=== PATIENT | male | born 1945 | race Caucasian/White ===

== ENCOUNTER 2017-07-31 17:26 | Inpatient (IN) ==
--- NOTE | 2017-07-31 19:04 | Emergency Department Note ---
Arrival - Arrival Chief Complaint: Weakness Stated Complaint: sugar high ED Nursing Triage Note: Pt c/o high sugar over 700, right arm "jerking", and weakness. Pt was seen at Dr Woods's office today. ; Mode of Arrival: Ambulatory Time Seen by Provider: 07/31/17 18:27 - History of Present Illness HPI Narrative: This is a 71-year-old white male with history of ischemic cardiomyopathy with an AICD and systolic and diastolic congestive heart failure with a left ventricular ejection fraction of 30%, coronary artery disease with previous myocardial infarction and coronary artery bypass graft surgery, type 2 diabetes , long-standing and persistent atrial fibrillation on Eliquis, hypertension, prior acute renal failure which is improved who is in his doctor's office today where laboratory tests were done and where he complained of symptoms compatible of a focal seizure involving his left arm with the family noticed on 3 separate occasions today. The most severe of which was after they left the doctor's office and after he had a CT scan of his brain was on the way home. The family describes the seizure as involving the left arm with altered mental status but not complete loss of consciousness. Dr. Sarah Woods noted that his blood sugar was over 500 and advised him to come back to the emergency department for further evaluation. The CT scan of the brain which was done today showed bilateral parietal cortical infarctions and multiple cerebellar infarctions with an abnormality in the third ventricle which may be consistent with a cyst or an aneurysm. The family has noticed that the patient has had ataxia for the past 24 hours. His says that for the past 3 months he has been having increasing signs of what she thought was Alzheimer's disease. In the emergency department since the patient was given Ativan his confusion seems to be exacerbated. He is oriented to time and place but could not name the president. Allergies/Adverse Reactions: Allergies Allergy/AdvReac Type Severity Reaction Status Date / Time Sulfa (Sulfonamide Allergy RASH Verified 07/31/17 17:34 Antibiotics) Home Medications: Home Medications Medication Instructions Recorded Confirmed Type Aspirin [Ecotrin] 81 mg PO QAM 07/03/16 07/31/17 History Gabapentin Cap/Tab [Neurontin 300 mg PO BEDTIME 07/03/16 07/31/17 History Cap/Tab] Insulin Detemir [Levemir FlexPen] 15 unit SUBCUT BID 07/03/16 07/31/17 History Glimepiride [Amaryl] 4 mg PO DAILY W/BREAKFAST tablet 07/09/16 07/31/17 Rx Lovastatin [Mevacor] 40 mg PO DAILY W/SUPPER tablet 07/09/16 07/31/17 Rx Furosemide Tab [Lasix Tab] 20 mg PO QAM 12/24/16 07/31/17 History Sertraline [Zoloft] 25 mg PO BEDTIME 12/24/16 07/31/17 History Metoprolol Tartrate Tab [Lopressor 50 mg PO BID #60 tablet 12/25/16 07/31/17 Rx Tab] Apixaban [Eliquis] 2.5 mg PO BID 07/31/17 07/31/17 History Ferrous Gluconate 240 mg PO QAM 07/31/17 07/31/17 History Isosorbide Mononitrate [Imdur] 60 mg PO QAM 07/31/17 07/31/17 History Potassium Chloride 10 meq PO QAM 07/31/17 07/31/17 History cloNIDine TAB [Catapres Tab] 0.2 mg PO BEDTIME 07/31/17 07/31/17 History Review of System - Review of System Constitutional: Absent: fever, night sweats Eyes: Absent: redness, vision change Head/Ears/Nose/Throat: Absent: epistaxis, nasal drainage Respiratory: Absent: respiratory distress Cardiovascular: Absent: orthopnea Gastrointestinal: Absent: nausea, vomiting, diarrhea Genitourinary male: Absent: dysuria, hematuria Musculoskeletal: Absent: joint swelling, lower back pain, leg pain Skin: Absent: change in color, change in hair/nails, pruritus Neurological: Present: abnormal gait. Absent: confusion Psychiatric: Absent: anxiety, depression Endocrine: Present: polydipsia, polyuria. Absent: heat intolerance Hematological/Lymphatic: Absent: easy bruising, lymphadenopathy Allergic/Immunologic: Absent: urticaria, itchy eyes Medical,Surgical,& Family Hx - Medical History Cardio: History of: Hypertension, [place] Neurology: No history of: Seizures Endocrine: History of: Diabetes Mellitus (IDDM), Diabetes Mellitus (NIDDM), Dyslipidemia - Surgical History Cardiac Surgeries: Sugical HX of: Cardiac Catheterization, Cardiac Surgery (CABG ) Abdominal Surgeries: Patient denies: Abdominal Surgery - Family History Family History: Reports;: Family Diabetes (mother), Family Heart Disease (father ), Family Hypertension (mother) - Social History Smoking Status: Never smoker Exam Vital Signs: Vital Signs Temperature 97.1 F L 07/31/17 18:19 Pulse Rate 112 H 07/31/17 18:19 Respiratory Rate 22 07/31/17 18:19 Blood Pressure 198/140 07/31/17 18:19 O2 Sat by Pulse Oximetry 97 07/31/17 17:31 - General Exam limited due to: ALOC General appearance: alert, in no apparent distress - Eye Eye exam: Present: normal appearance, PERRL, EOMI - ENT ENT exam: Present: normal exam - Neck Neck exam: Present: normal inspection - Chest Chest inspection: Present: normal inspection - Respiratory Respiratory exam: Present: normal lung sounds bilaterally - Cardiovascular Cardiovascular exam: Present: irregular rhythm - Abdominal Exam Abdominal exam: Present: soft, normal bowel sounds - Extremities Exam Extremities exam: Present: normal inspection, full ROM - Back Exam Back exam: Present: normal inspection, full ROM - Neurological Exam Neurological exam: Present: alert, oriented X3, CN II-XII intact, reflexes normal. Absent: motor sensory deficit - Psychiatric Psychiatric exam: Present: normal affect, normal mood - Skin Skin exam: Present: warm, dry Course Course Narrative: The case was discussed with Dr. Campbell who agreed the patient should be admitted to the hospital for what appears to be a focal seizure disorder which is new in onset and possibly related to previous cerebral cortical strokes and cerebellar strokes with a possible aneurysm in the ak chin of Pat. Dr. Campbell recommended neurology consultation sliding scale for the hyperglycemia and admission to telemetry. Results - Labs CBC & BMP: 07/31/17 17:49 07/31/17 17:49 Disposition Clinical Impression: Focal motor seizure disorder, Hyperglycemia Disposition: Still a Patient Additional Instructions: The case was discussed with Dr. Campbell who agreed to admit the patient to the hospital for neurology consultation and sliding scale for the elevated blood sugar.
[2017-07-31] MEDS ORDERED: levETIRAcetam 500 MG TABLET PO STA (19:18)
[2017-07-31] MEDS ORDERED: LORazepam 2 MG/1 ML VIAL IV STA (19:19)
[2017-07-31] MEDS ORDERED: hydrALAZINE 20 MG/1 ML VIAL IV STA (19:19)
[2017-07-31] MEDS ORDERED: SODIUM CHLORIDE 0.9% 1,000 ML IV STA (19:21)
[2017-07-31] MEDS ORDERED: INSULIN REGULAR 100 UNIT/ML IV STA ×2 (19:21→21:46)
--- NOTE | 2017-07-31 19:40 | XRay Report ---
Portable chest. Indication: Seizure. History of lung cancer. Comparison: December 25, 2016. The cardiac silhouette is enlarged. Post median sternotomy. Cardiac hardware is in satisfactory position. The lung huitron are hyperexpanded. Calcified granulomas are present. Interstitial markings are prominent but stable. No consolidation, pneumothorax, or pleural effusion. Degenerative changes of the shoulders and spinal column. Impression: Cardiomegaly and chronic lung changes. No acute abnormality. PROCEDURE INTERPRETED AT [facility] DEPARTMENT OF RADIOLOGY Final Report Signed by: Dr. Lay Mathias
[2017-07-31] MEDS ORDERED: hydrALAZINE 20 MG/1 ML VIAL ONE (19:55)
[2017-07-31] MEDS ORDERED: levETIRAcetam 500 MG TABLET ONE (19:55)
[2017-07-31] MEDS ORDERED: LORazepam 2 MG/1 ML VIAL ONE (19:56)
[2017-07-31] MEDS ORDERED: INSULIN REGULAR 100 UNIT/ML ONE (19:57)
[2017-07-31 20:03] LABS: Basophils % 0.6 % (0.0-0.8); Eosinophils # 0.2 10*3/uL (0.0-0.87); Eosinophils % 3.2 % (0.00-10.9); Hematocrit 37.3 VOL% (42.0-52.0); Immature Granulocytes % 0.3 %; Immature Granulocytes Absolute 0.02 #; Lymphocytes # 1.3 10*3/uL (1.4-4.0); Lymphocytes % 18.2 % (21.2-54.2); Mean Corpuscular HGB Conc 34.9 GM/DL (32-36); Mean Corpuscular Hemoglobin 31 PG (27-34); Mean Corpuscular Volume 87.6 FL (87-102); Mean Platelet Volume 11.9 FL (9.6-12.0); Monocytes # 0.5 10*3/uL (0.11-0.8); Monocytes % 7.5 % (1.7-12.7); Neutrophils % 70.2 % (38.7-73.9); Platelet Count 140 T/CUMM (130-400); Red Blood Count 4.26 MC/CUMM (3.8-5.5); Red Cell Distribution Width 13.3 % (9.3-17.3); White Blood Count 7.2 T/CUMM (4-12)
[2017-07-31 20:18] LABS: VBG Base Excess 0.4 MEQ/L (0-4); VBG HCO3 24.8 MEQ/L (24-28); VBG Oxygen Saturation 98.2 %; VBG PCO2 38.2 MMHG (41-51); VBG PH 7.418; VBG PO2 95.8 MMHG (17-40)
--- NOTE | 2017-07-31 20:33 | Order Completion Report ---
See report scanned to EMR
[2017-07-31 20:47] LABS: Albumin 3.6 G/DL (3.4-5.0); Bilirubin,Total 0.5 MG/DL (0.2-1.0); Calcium 8.9 MG/DL (8.5-10.1); Osmolality,Calculated 301.5 MOS/KG (273-304); Potassium 3.9 MMOL/L (3.5-5.1); Total Protein 7.9 G/DL (6.4-8.3)
[2017-07-31] MEDS ORDERED: ONDANSETRON 4 MG/2 ML VIAL IV PRN (21:34)
[2017-07-31] MEDS ORDERED: DEXTROSE 50% 25 GM/50 ML VIAL IV PRN (21:34)
[2017-07-31] MEDS ORDERED: ACETAMINOPHEN 325 MG TABLET PO PRN (21:34)
[2017-07-31] MEDS ORDERED: GLUCAGON 1 MG VIAL IM PRN (21:34)
[2017-08-01 00:01] LABS: Troponin I Only 0.063 NG/ML (0.00-0.045)
[2017-08-01] MEDS ORDERED: cloNIDine 0.1 MG TABLET PO PRN (00:30)
[2017-08-01] MEDS: INSULIN REGULAR 100 UNIT/ML SUBCUT SCH ×4 (00:41→18:15)
[2017-08-01] MEDS: GABAPENTIN 300 MG CAPSULE PO SCH ×2 (00:45→20:57)
[2017-08-01] MEDS: METOPROLOL TARTRATE 100 MG TABLET PO SCH ×3 (00:46→20:57)
[2017-08-01 01:24] LABS: Troponin I Only 0.064 NG/ML (0.00-0.045)
--- NOTE | 2017-08-01 03:43 | Order Completion Report ---
See report scanned to EMR
--- NOTE | 2017-08-01 07:19 | Order Completion Report ---
See report scanned to EMR
[2017-08-01] MEDS: DOCUSATE SODIUM 100 MG CAPSULE PO SCH ×2 (12:10→20:57)
[2017-08-01] MEDS: PANTOPRAZOLE 40 MG TABLET PO SCH (12:10)
--- NOTE | 2017-08-01 13:01 | Order Completion Report ---
See report scanned to EMR
--- NOTE | 2017-08-01 15:16 | Neurology Consult Note ---
History of Present Illness History of present illness: 70 years old right-handed white gentleman with past medical history significant for ischemic cardiomyopathy with an AICD, congestive heart failure with LV ejection fraction of 30%, CAD, previous AR and CABG, type 2 diabetes, long- standing history of atrial fibrillation on chronic anticoagulation with Eliquis , hypertension, history of renal failure admitted to the hospital with some shaking and jerking of the arms and legs. Patient was at Dr. Woods's office where he developed some nervousness and anxiety and was just having some shaking of the arms. He also developed some difficulty in walking. tried to take him back home but he somewhat passed out inside the car. He seems to be doing fine today. He had a CAT scan done on 07/31/2017 which revealed bilateral parietal watershed type chronic infarcts, bilateral old cerebellar infarcts and a small lacunar infarct of the left thalamus. At Dr. Woods's office lab works revealed blood sugar of over 500 and he was advised to go to the emergency room. No tongue biting or urinary incontinence reported. Never had similar episodes before. No family history of seizures either. Home Medications Medication Instructions Recorded Confirmed Type Aspirin [Ecotrin] 81 mg PO DAILY 07/03/16 07/31/17 History Gabapentin Cap/Tab [Neurontin 300 mg PO AC SUPPER 07/03/16 07/31/17 History Cap/Tab] Insulin Detemir [Levemir FlexPen] 15 unit SUBCUT AC BREAKFAST 07/03/16 07/31/17 History Glimepiride [Amaryl] 4 mg PO DAILY W/BREAKFAST tablet 07/09/16 07/31/17 Rx Lovastatin [Mevacor] 40 mg PO DAILY W/SUPPER tablet 07/09/16 07/31/17 Rx Furosemide Tab [Lasix Tab] 20 mg PO DAILY 12/24/16 07/31/17 History Sertraline [Zoloft] 25 mg PO DAILY 12/24/16 07/31/17 History Apixaban [Eliquis] 2.5 mg PO BID 07/31/17 07/31/17 History Ferrous Gluconate 240 mg PO DAILY 07/31/17 07/31/17 History Isosorbide Mononitrate [Imdur] 60 mg PO DAILY 07/31/17 07/31/17 History Metoprolol Tartrate Tab [Lopressor 100 mg PO BID W/MEALS 07/31/17 07/31/17 History Tab] Potassium Chloride 10 meq PO DAILY 07/31/17 07/31/17 History cloNIDine TAB [Catapres Tab] 0.2 mg PO BEDTIME 07/31/17 07/31/17 History Allergies Allergy/AdvReac Type Severity Reaction Status Date / Time Sulfa (Sulfonamide Allergy RASH Verified 07/31/17 17:34 Antibiotics) 12 point system: reviewed and no additional remarkable complaints except as stated Medical,Surgical,& Family Hx - Medical History Cardio: History of: Cardiac Dysrhythmia (HX AFIB), CHF, CAD, Hypertension, [place], Pacemaker Neurology: No history of: Seizures Endocrine: History of: Diabetes Mellitus (IDDM), Diabetes Mellitus (NIDDM), Dyslipidemia - Surgical History Cardiac Surgeries: Sugical HX of: Cardiac Catheterization (WITH STENTS), Cardiac Surgery (CABG) Abdominal Surgeries: Patient denies: Abdominal Surgery - Family History Family History: Reports;: Family Diabetes (mother), Family Heart Disease (father ), Family Hypertension (mother) - Social History Smoking Status: Never smoker Frequency of Alcohol Use: None Type of Drug Use: None Exam - Constitutional Vitals: Period Temp Pulse Resp BP Sys/Fernando Pulse Ox Last 24 Hr 95.6 F-98.1 F 60-112 16-22 136-198/70-140 92-100 Exam: GENERAL: Patient is in no acute distress. NECK: Neck is supple. There is no JVD. No carotid bruits present. No thyroid masses. CVS: First and second heart sounds are normal. There is no S3 present. Regular rate and rhythm. RESPIRATORY: Lungs are clear to auscultation without any rales or rhonchi. ABDOMEN: Soft and non-tender. Bowel sounds are present. There is no hepatosplenomegaly. EXT: There is no palpable edema. Peripheral pulses are present. Skin: No rashes Central Nervous system: General: Alert, awake and Oriented x 3 Speech: Fluent Comprehension: Intact and normal Facial expressions: Normal Cranial Nerves: CN1/Olfactory: Normal CN II/ Optic: Normal, Visual Clay unreliable CN III, and : JOSE & EOMI CN V: Normal & intact CN VII: face is symmetric CNVIII: Normal CN XI/X/XI/XII: Intact and Normal Motor: Bulk and Tone is normal. Strength in the right 5/5 Strength in the left 5/5 Sensory: Decreased for all the modalities of PP, LT and temp sense Reflexes: 1+ and symmetrical Cerebellar function: Normal finger to nose and heel to grigsby testing. Toes: Equivocal Gait: Able to get up and walk Results - Labs CBC & BMP: 07/31/17 17:49 07/31/17 17:49 Assessment and Plan (1) Syncope Status: Acute Assessment and plan: This does sound like metabolic in origin. Blood sugar was extremely high at 500. I do not see any clear evidence of TIA, seizure or epilepsy. However we will go ahead and do EEG for the sake of completeness. Thank you for the consult Okay to go home when okay with PCP after EEG Current Visit: Yes
[2017-08-01 16:38] LABS: Apearance,Urine Slightly Hazy (Clear); Bacteria,Urine Occasional /HPF (Few); Bilirubin,Urine Negative (Negative); Blood, Urine Large mg/dL (Negative); Glucose,Urine (UA) >=500 mg/dL (Negative); Granular Casts,Urine 14 /LPF (0-1); Hyaline Casts,Urine 7 /LPF (0-3); Ketones,Urine Negative (Negative); Mucus,Urine Occasional /LPF (Occasional); Nitrite,Urine Negative (Negative); Protein,Urine >=500 MG/DL; RBC,Urine 55 /HPF (0-4); Urine Color Amber (Yellow); Urine Specific Gravity 1.023 (1.001-1.035); WBC,Urine 4 /HPF (0-6)
--- NOTE | 2017-08-01 18:16 | Internal Med History&Physical ---
Assessment and Plan (1) Paroxysmal a-fib Status: Chronic Current Visit: Yes (2) Pacemaker Status: Chronic Current Visit: Yes (3) Focal motor seizure disorder Status: Acute Current Visit: Yes (4) Hyperglycemia Status: Acute Current Visit: Yes (5) Congestive heart failure Status: Chronic Current Visit: No Qualifiers: Congestive heart failure type: combined (6) Coronary artery disease Status: Chronic Current Visit: No Qualifiers: Coronary Disease-Associated Artery/Lesion type: [place] artery [place] vs. transplanted heart: [place] heart Associated angina: without angina Qualified Code(s): I25.10 - Atherosclerotic heart disease of [place] coronary artery without angina pectoris (7) Diabetes mellitus Status: Chronic Current Visit: Yes Qualifiers: Diabetes mellitus type: type 2 Diabetes mellitus complication status: with hyperglycemia Diabetes mellitus correction insulin use: with dedicated intermodal truck driver use Qualified Code(s): E11.65 - Type 2 diabetes mellitus with hyperglycemia; Z79.4 - jail (current) use of insulin; Z79.4 - jail (current) use of insulin ; Z79.4 - jail (current) use of insulin; Z79.4 - watermaster (current) use of insulin (8) Essential hypertension Status: Chronic Current Visit: Yes History of Present Illness Chief complaint: acute tremors History of present illness: Mr. Heller is a 71 year old male with history of DM, HTN, CAD with stents, CABG , CHF, cardiomyopathy with LVEF of 30%, dyslipidemia, chronic atrial fibrillation, pacemaker placement, old strokes, who presented to clinic yesterday with worsening tremors and confusion. He was found to have significantly elevated glucose of >[address] brain indicated multiple small strokes. MRI brain ordered for next week from clinic to further delineate area of abnormality on CT. Dr. Turpin consulted to further evaluate tremors and rule out seizure activity. He was alert when seen today. Home Medications Medication Instructions Recorded Confirmed Type Aspirin [Ecotrin] 81 mg PO DAILY 07/03/16 07/31/17 History Gabapentin Cap/Tab [Neurontin 300 mg PO AC SUPPER 07/03/16 07/31/17 History Cap/Tab] Insulin Detemir [Levemir FlexPen] 15 unit SUBCUT AC BREAKFAST 07/03/16 07/31/17 History Glimepiride [Amaryl] 4 mg PO DAILY W/BREAKFAST tablet 07/09/16 07/31/17 Rx Lovastatin [Mevacor] 40 mg PO DAILY W/SUPPER tablet 07/09/16 07/31/17 Rx Furosemide Tab [Lasix Tab] 20 mg PO DAILY 12/24/16 07/31/17 History Sertraline [Zoloft] 25 mg PO DAILY 12/24/16 07/31/17 History Apixaban [Eliquis] 2.5 mg PO BID 07/31/17 07/31/17 History Ferrous Gluconate 240 mg PO DAILY 07/31/17 07/31/17 History Isosorbide Mononitrate [Imdur] 60 mg PO DAILY 07/31/17 07/31/17 History Metoprolol Tartrate Tab [Lopressor 100 mg PO BID W/MEALS 07/31/17 07/31/17 History Tab] Potassium Chloride 10 meq PO DAILY 07/31/17 07/31/17 History cloNIDine TAB [Catapres Tab] 0.2 mg PO BEDTIME 07/31/17 07/31/17 History Allergies Allergy/AdvReac Type Severity Reaction Status Date / Time Sulfa (Sulfonamide Allergy RASH Verified 07/31/17 17:34 Antibiotics) Medical,Surgical,& Family Hx - Medical History Cardio: History of: Cardiac Dysrhythmia (HX AFIB), CHF, CAD, Hypertension, [place], Pacemaker Neurology: No history of: Seizures Endocrine: History of: Diabetes Mellitus (IDDM), Dyslipidemia Hematology: History of: Anemia - Surgical History Cardiac Surgeries: Sugical HX of: Cardiac Catheterization (WITH STENTS), Cardiac Surgery (CABG) Abdominal Surgeries: Patient denies: Abdominal Surgery - Family History Family History: Reports;: Family Diabetes (mother), Family Heart Disease (father ), Family Hypertension (mother) - Social History Smoking Status: Never smoker Frequency of Alcohol Use: None Type of Drug Use: None Marital Status: Lives With:: Spouse Functional capacity: independent ambulation - Constitutional Constitutional: Present: fatigue, weakness - Cardiovascular Cardiovascular: Absent: chest pain at rest, chest pain with activity - Respiratory Respiratory: Absent: dyspnea - Gastrointestinal Gastrointestinal: Absent: nausea - Neurological Neurological: Present: tremor(s) - Psychiatric Psychiatric: Present: confusion Exam - Constitutional Vitals: Period Temp Pulse Resp BP Sys/Fernando Pulse Ox Last 24 Hr 95.6 F-98.1 F 60-112 16-22 136-198/70-140 92-100 General appearance: no acute distress - Head Head exam: Present: normocephalic - Eye Eye exam: Present: EOMI - Respiratory Respiratory exam: Present: clear to auscultation bilaterally - Cardiovascular Cardiovascular exam: Present: regular rate and rhythm - GI/Abdominal GI/Abdominal exam: Absent: tenderness, soft - Extremities Exam Extremities exam: Absent: edema - Neurological Exam Neurological exam: Present: alert - Psychiatric Psychiatric exam: Present: normal mood - Skin Skin exam: Present: warm, dry Results - Labs CBC & BMP: 07/31/17 17:49 07/31/17 17:49 Quality Measures - VTE Contraindication to Pharmacological VTE Prophylaxis: High Risk of Bleeding
[2017-08-01] MEDS: LOVASTATIN 20 MG TABLET PO SCH (18:49)
[2017-08-01] MEDS: INSULIN GLARGINE 100 UNIT/ML SUBCUT SCH (20:56)
[2017-08-01] MEDS: APIXABAN 2.5 MG TABLET PO SCH (20:57)
[2017-08-02] MEDS: INSULIN REGULAR 100 UNIT/ML SUBCUT SCH ×4 (00:35→17:22)
[2017-08-02 04:53] LABS: Basophils # 0.1 10*3/uL (0.0-0.2); Basophils % 0.8 % (0.0-0.8); Eosinophils # 0.5 10*3/uL (0.0-0.87); Eosinophils % 6.9 % (0.00-10.9); Hematocrit 36.1 VOL% (42.0-52.0); Hemoglobin 12.8 GM/DL (14.0-18.0); Immature Granulocytes % 0.1 %; Immature Granulocytes Absolute 0.01 #; Lymphocytes # 1.9 10*3/uL (1.4-4.0); Lymphocytes % 24.6 % (21.2-54.2); Mean Corpuscular HGB Conc 35.5 GM/DL (32-36); Mean Corpuscular Hemoglobin 31 PG (27-34); Mean Corpuscular Volume 87.8 FL (87-102); Mean Platelet Volume 11.6 FL (9.6-12.0); Monocytes # 0.6 10*3/uL (0.11-0.8); Monocytes % 7.8 % (1.7-12.7); Neutrophils # 4.7 10*3/uL (1.4-7.4); Neutrophils % 59.8 % (38.7-73.9); Platelet Count 132 T/CUMM (130-400); Red Blood Count 4.11 MC/CUMM (3.8-5.5); Red Cell Distribution Width 13.2 % (9.3-17.3); White Blood Count 7.8 T/CUMM (4-12)
[2017-08-02 05:31] LABS: Calcium 8.5 MG/DL (8.5-10.1); Magnesium 2.3 MG/DL (1.8-2.4); Osmolality,Calculated 292.5 MOS/KG (273-304); Potassium 3.6 MMOL/L (3.5-5.1); Risk Ratio 3.7; Thyroid Stimulating Hormone 0.734 uIU/ml (0.358-3.74); VLDL CHOLESTEROL 29.2 MG/DL
[2017-08-02] MEDS: SERTRALINE 25 MG TABLET PO SCH (09:05)
[2017-08-02] MEDS: FUROSEMIDE 20 MG TABLET PO SCH (09:05)
[2017-08-02] MEDS: ISOSORBIDE MONONITRATE 60 MG TABLET PO SCH (09:05)
[2017-08-02] MEDS: PANTOPRAZOLE 40 MG TABLET PO SCH (09:06)
[2017-08-02] MEDS: METOPROLOL TARTRATE 100 MG TABLET PO SCH ×2 (09:06→21:44)
[2017-08-02] MEDS: DOCUSATE SODIUM 100 MG CAPSULE PO SCH ×2 (09:06→21:44)
[2017-08-02] MEDS: APIXABAN 2.5 MG TABLET PO SCH ×2 (09:06→21:44)
[2017-08-02] MEDS: GLIMEPIRIDE 4 MG TABLET PO SCH (09:06)
--- NOTE | 2017-08-02 11:13 | Internal Med Progress Note ---
Assessment and Plan (1) Paroxysmal a-fib Status: Chronic Current Visit: Yes (2) Pacemaker Status: Chronic Current Visit: Yes (3) Focal motor seizure disorder Status: Acute Current Visit: Yes (4) Hyperglycemia Status: Acute Current Visit: Yes (5) Congestive heart failure Status: Chronic Current Visit: No Qualifiers: Congestive heart failure type: combined (6) Coronary artery disease Status: Chronic Current Visit: No Qualifiers: Coronary Disease-Associated Artery/Lesion type: [place] artery [place] vs. transplanted heart: [place] heart Associated angina: without angina Qualified Code(s): I25.10 - Atherosclerotic heart disease of [place] coronary artery without angina pectoris (7) Diabetes mellitus Status: Chronic Current Visit: Yes Qualifiers: Diabetes mellitus type: type 2 Diabetes mellitus complication status: with hyperglycemia Diabetes mellitus nursing home insulin use: with intermediate designer use Qualified Code(s): E11.65 - Type 2 diabetes mellitus with hyperglycemia; Z79.4 - group home (current) use of insulin; Z79.4 - group home (current) use of insulin ; Z79.4 - group home (current) use of insulin; Z79.4 - intermediate designer (current) use of insulin (8) Essential hypertension Status: Chronic Current Visit: Yes Internal Medicine - PN: Subj Interval history: Mr. Heller is a 71 year old male with history of DM, HTN, CAD with stents, CABG , CHF, cardiomyopathy with LVEF of 30%, dyslipidemia, chronic atrial fibrillation, pacemaker placement, old strokes, who presented to clinic yesterday with worsening tremors and confusion. He was found to have significantly elevated glucose of >[address] brain indicated multiple small strokes. MRI brain ordered for next week from clinic to further delineate area of abnormality on CT. August 02: Feeling much better today with greatly improved glucose values. No appreciable tremors. Will reschedule MRI brain for Friday or Friday since he is here in hospital. Exam (Progress Note) - Constitutional Vitals: Period Temp Pulse Resp BP Sys/Fernando Pulse Ox Last 24 Hr 96.5 F-97.6 F 59-71 14-18 138-150/78-92 96-100 General appearance: no acute distress - Respiratory Respiratory exam: Present: clear to auscultation bilaterally - Cardiovascular Cardiovascular exam: Present: regular rate and rhythm - GI/Abdominal GI/Abdominal exam: Present: soft. Absent: tenderness - Extremities Exam Extremities exam: Absent: edema - Neurological Exam Neurological exam: Present: alert, oriented X3 - Psychiatric Psychiatric exam: Present: normal mood - Skin Skin exam: Present: warm, dry Results - Labs CBC & BMP: 08/02/17 04:25 08/02/17 04:25 Quality Measures - VTE Contraindication to Pharmacological VTE Prophylaxis: High Risk of Bleeding
--- NOTE | 2017-08-02 16:48 | XRay Report ---
History: Screening for MRI Date: 08/02/2017 Study: 4 views orbits for MRI clearance Comparison exam: No previous similar No radiopaque orbital foreign body is seen. The paranasal sinuses are grossly clear. There is no acute osseous abnormality. Impression: No radiopaque orbital foreign bodies identified PROCEDURE INTERPRETED AT [facility] DEPARTMENT OF RADIOLOGY Final Report Signed by: Dr. Zeynep Burr
[2017-08-02] MEDS: LOVASTATIN 20 MG TABLET PO SCH (17:22)
[2017-08-02] MEDS: INSULIN GLARGINE 100 UNIT/ML SUBCUT SCH (21:42)
[2017-08-02] MEDS: GABAPENTIN 300 MG CAPSULE PO SCH (21:43)
[2017-08-03] MEDS: INSULIN REGULAR 100 UNIT/ML SUBCUT SCH ×5 (00:31→23:45)
[2017-08-03] MEDS: METOPROLOL TARTRATE 100 MG TABLET PO SCH ×2 (08:52→22:29)
[2017-08-03] MEDS: PANTOPRAZOLE 40 MG TABLET PO SCH (08:53)
[2017-08-03] MEDS: GLIMEPIRIDE 4 MG TABLET PO SCH ×2 (08:53→18:15)
[2017-08-03] MEDS: ISOSORBIDE MONONITRATE 60 MG TABLET PO SCH (08:53)
[2017-08-03] MEDS: SERTRALINE 25 MG TABLET PO SCH (08:53)
[2017-08-03] MEDS: APIXABAN 2.5 MG TABLET PO SCH ×2 (08:53→22:29)
[2017-08-03] MEDS: FUROSEMIDE 20 MG TABLET PO SCH (08:53)
[2017-08-03] MEDS: DOCUSATE SODIUM 100 MG CAPSULE PO SCH ×2 (08:53→22:29)
[2017-08-03 10:52] LABS: Calcium 8.2 MG/DL (8.5-10.1); Osmolality,Calculated 290.7 MOS/KG (273-304); Potassium 4.1 MMOL/L (3.5-5.1)
--- NOTE | 2017-08-03 14:21 | Internal Med Progress Note ---
Assessment and Plan (1) Paroxysmal a-fib Status: Chronic Current Visit: Yes (2) Pacemaker Status: Chronic Current Visit: Yes (3) Hyperglycemia Status: Acute Current Visit: Yes (4) Congestive heart failure Status: Chronic Current Visit: No Qualifiers: Congestive heart failure type: combined (5) Coronary artery disease Status: Chronic Current Visit: No Qualifiers: Coronary Disease-Associated Artery/Lesion type: [place] artery [place] vs. transplanted heart: [place] heart Associated angina: without angina Qualified Code(s): I25.10 - Atherosclerotic heart disease of [place] coronary artery without angina pectoris (6) Diabetes mellitus Status: Chronic Current Visit: Yes Qualifiers: Diabetes mellitus type: type 2 Diabetes mellitus complication status: with hyperglycemia Diabetes mellitus retirement insulin use: with terminal gauger use Qualified Code(s): E11.65 - Type 2 diabetes mellitus with hyperglycemia; Z79.4 - intermediate designer (current) use of insulin; Z79.4 - intermediate designer (current) use of insulin ; Z79.4 - intermediate designer (current) use of insulin; Z79.4 - intermediate designer (current) use of insulin (7) Essential hypertension Status: Chronic Current Visit: Yes Internal Medicine - PN: Subj Interval history: Mr. Heller is a 71 year old male with history of DM, HTN, CAD with stents, CABG , CHF, cardiomyopathy with LVEF of 30%, dyslipidemia, chronic atrial fibrillation, pacemaker placement, old strokes, who presented to clinic yesterday with worsening tremors and confusion. He was found to have significantly elevated glucose of >[address] brain indicated multiple small strokes. MRI brain ordered for next week from clinic to further delineate area of abnormality on CT. August 02: Feeling much better today with greatly improved glucose values. No appreciable tremors. Will reschedule MRI brain for Friday or Friday since he is here in hospital. August 03: He will have MRI tomorrow. He reports shortness of breath crossing the room, and consulted Dr. Alberto to further evaluate. He has not followed up with cardiology in years. Also, consulted Dr. Mckeon for obstructive sleep apnea. Exam (Progress Note) - Constitutional Vitals: Period Temp Pulse Resp BP Sys/Fernando Pulse Ox Last 24 Hr 97.3 F-98.6 F 60-67 16-20 127-150/71-89 94-99 Exam: General appearance: no acute distress - Respiratory Respiratory exam: Present: clear to auscultation bilaterally - Cardiovascular Cardiovascular exam: Present: regular rate and rhythm - GI/Abdominal GI/Abdominal exam: Present: soft. Absent: tenderness - Extremities Exam Extremities exam: Present: edema (trace) - Neurological Exam Neurological exam: Present: alert - Psychiatric Psychiatric exam: Present: normal mood - Skin Skin exam: Present: warm, dry Results - Labs CBC & BMP: 08/02/17 04:25 08/03/17 09:52 Quality Measures - VTE Contraindication to Pharmacological VTE Prophylaxis: High Risk of Bleeding
--- NOTE | 2017-08-03 15:15 | Cardiology Consult Note ---
History of Present Illness - Data of Consult Patient: known to practice within the last 3 years - Consult Narrative History of present illness: Cardiology consult 71-year-old man was admitted last , July 31 Dr. Sarah Woods's office with complaints of nervousness and tremor. Blood sugar was 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 The patient has no clinical history of stroke. The patient does have chronic atrial fibrillation and is currently on Eliquis. Documented ischemic cardia myopathy. History of MT and stents in [place]. Status post four-vessel CABG [address] [facility] in [facility]. Patient was lost to follow-up for several years. He has had no postop cath or stress test. The patient moved to [place] almost 2 years ago to live with her daughter. They have a trailer on her property and take care of the grandchildren. He is status post Medtronic amplia biventricular ICD/pacer by December 24, 2016. EF 30% by echo at that time. The patient has chronic hypertension. He does have a history of CHF. The patient denies angina. However he does have chronic dyspnea and easy fatigability. He has not smoked in over 40 years. He has a rare cold beer only. He is 5 feet 10 inches tall weighs 200 pounds. Is a type II diabetic that is been poorly controlled. The patient has chronic renal insufficiency. Creatinine was 2.1 when tested July 04, 2016. Creatinine today is 2.30 BUN 39. According to his Jessica the patient snores loudly has an erratic breathing pattern. He often wakes up unrefreshed and has daytime sleepiness. He quickly falls asleep on the couch watching a movie and falls asleep at hoahaoism while listening to the sermon. He sleeps on one pillow and has nocturia 3 or 490 which is chronic for him. Lab data today Sodium 138 potassium 4.1 chloride 103 CO2 27 BUN 39 creatinine 2.30 glucose 220 magnesium 2.3 triglycerides 146 cholesterol 148 LDL 88 HDL 40 White count 7.8 hemoglobin 12.8 hematocrit 36.1 MCV of 87 EKG July 31, 2017 shows atrial fibrillation with right axis deviation right bundle branch block intermittent ventricular pacing and diffuse ST-T wave changes No chest x-ray has been done Blood pressure 132/80 O2 sat 95 on room air pulses 85-90 and irregular. Bilateral arcus. No xanthelasma. Soft left carotid bruit. Irregular rhythm. No murmur. Decreased breath sounds but fairly clear. Abdomen obese soft benign. Femoral pulses are 2+. Distal pulses are 1+. There is no leg edema Impression Ischemic cardiomyopathy EF 30% by echo December 2016 History of MT and multiple stents in [place] Status post four-vessel CABG 2005 [facility] Chronic atrial fibrillation Chronic anticoagulation with Eliquis Chronic dyspnea easy fatigability which may be anginal equivalent. 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 No clinical history of stroke. 5 feet 10 inches tall 200 pounds Status post Medtronic AMPLIA biventricular ICD/pacemaker December 24, 2016 by Long-time diabetes Chronic hypertension Hyperlipidemia Chronic renal insufficiency. Creatinine today 2.30 BUN 39 Plan PA and lateral chest x-ray Echo Doppler Lexiscan cardiac stress test in a.m to evaluate for ischemia. Baseline creatinine 2.[address] Mckeon to evaluate tomorrow Findings and plan discussed with patient and with his Jessica. CC: Sarah Woods, DO - Home Medications and Allergies Home Medications: Home Medications Medication Instructions Recorded Confirmed Type Aspirin [Ecotrin] 81 mg PO DAILY 07/03/16 07/31/17 History Gabapentin Cap/Tab [Neurontin 300 mg PO AC SUPPER 07/03/16 07/31/17 History Cap/Tab] Insulin Detemir [Levemir FlexPen] 15 unit SUBCUT AC BREAKFAST 07/03/16 07/31/17 History Glimepiride [Amaryl] 4 mg PO DAILY W/BREAKFAST tablet 07/09/16 07/31/17 Rx Lovastatin [Mevacor] 40 mg PO DAILY W/SUPPER tablet 07/09/16 07/31/17 Rx Furosemide Tab [Lasix Tab] 20 mg PO DAILY 12/24/16 07/31/17 History Sertraline [Zoloft] 25 mg PO DAILY 12/24/16 07/31/17 History Apixaban [Eliquis] 2.5 mg PO BID 07/31/17 07/31/17 History Ferrous Gluconate 240 mg PO DAILY 07/31/17 07/31/17 History Isosorbide Mononitrate [Imdur] 60 mg PO DAILY 07/31/17 07/31/17 History Metoprolol Tartrate Tab [Lopressor 100 mg PO BID W/MEALS 07/31/17 07/31/17 History Tab] Potassium Chloride 10 meq PO DAILY 07/31/17 07/31/17 History cloNIDine TAB [Catapres Tab] 0.2 mg PO BEDTIME 07/31/17 07/31/17 History Allergies/Adverse Reactions: Allergies Allergy/AdvReac Type Severity Reaction Status Date / Time Sulfa (Sulfonamide Allergy RASH Verified 07/31/17 17:34 Antibiotics) Medical,Surgical,& Family Hx - Medical History Cardio: History of: Cardiac Dysrhythmia (HX AFIB), CHF, CAD, Hypertension, MT, Pacemaker Neurology: No history of: Seizures Endocrine: History of: Diabetes Mellitus (IDDM), Diabetes Mellitus (NIDDM), Dyslipidemia Hematology: History of: Anemia - Surgical History Cardiac Surgeries: Sugical HX of: Cardiac Catheterization (WITH STENTS), Cardiac Surgery (CABG) Abdominal Surgeries: Patient denies: Abdominal Surgery - Family History Family History: Reports;: Family Diabetes (mother), Family Heart Disease (father ), Family Hypertension (mother) - Social History Smoking Status: Never smoker Frequency of Alcohol Use: None Type of Drug Use: None Physical Examination Vital Signs Temp Pulse Resp BP Pulse Ox 97.1 F L 112 H 20 198/140 97 07/31/17 17:31 07/31/17 17:31 07/31/17 17:31 07/31/17 17:31 07/31/17 17:31 Result/EKG - Labs CBC & BMP: 08/02/17 04:25 08/03/17 09:52 Labs: Laboratory Results - last 24 hr 07/31/17 08/02/17 08/02/17 17:49 17:06 23:59 Sodium Potassium Chloride Carbon Dioxide Anion Gap BUN Creatinine GFR Calculation BUN/Creatinine Ratio Glucose POC Glucose 182 H 209 H Calculated Osmolality Calcium Beta-Hydroxybutyrate 0.2 08/03/17 08/03/17 08/03/17 06:24 07:17 09:52 Sodium 138 Potassium 4.1 Chloride 103 Carbon Dioxide 27 Anion Gap 12.1 BUN 39 H Creatinine 2.30 H GFR Calculation 33 BUN/Creatinine Ratio 16.00 Glucose 220 H POC Glucose 88 81 Calculated Osmolality 290.7 Calcium 8.2 L Beta-Hydroxybutyrate 08/03/17 12:14 Sodium Potassium Chloride Carbon Dioxide Anion Gap BUN Creatinine GFR Calculation BUN/Creatinine Ratio Glucose POC Glucose 242 H Calculated Osmolality Calcium Beta-Hydroxybutyrate Quality Measures - VTE Contraindication to Pharmacological VTE Prophylaxis: High Risk of Bleeding
--- NOTE | 2017-08-03 17:02 | XRay Report ---
History: Shortness of breath Date: 08/03/2017 Study: Chest x-ray PA and lateral Comparison exam: July 31, 2017 The cardiac silhouette is upper normal in size. The mediastinal contours are stable in this patient status post prior median sternotomy. The pulmonary vasculature is not engorged. There is no pleural effusion. The lungs are well-expanded and clear without confluent infiltrate. There is a calcified granuloma in the lateral right mid to lower lung. There are some probable scattered emphysematous changes. There is mild thoracic spondylosis. Impression: No acute cardiopulmonary process compared to the previous study. Pacemaker as before PROCEDURE INTERPRETED AT [facility] DEPARTMENT OF RADIOLOGY Final Report Signed by: Dr. Zeynep Burr
[2017-08-03] MEDS: LOVASTATIN 20 MG TABLET PO SCH (17:12)
[2017-08-03] MEDS ORDERED: FUROSEMIDE 40 MG/4 ML VIAL IV ONE (17:39)
[2017-08-03] MEDS ORDERED: INSULIN GLARGINE 100 UNIT/ML SUBCUT SCH (20:00)
[2017-08-03] MEDS: GABAPENTIN 300 MG CAPSULE PO SCH (22:29)
[2017-08-04 05:14] LABS: Calcium 8.2 MG/DL (8.5-10.1); Osmolality,Calculated 294.4 MOS/KG (273-304); Potassium 3.5 MMOL/L (3.5-5.1)
[2017-08-04] MEDS: INSULIN REGULAR 100 UNIT/ML SUBCUT SCH ×3 (05:37→18:38)
[2017-08-04] MEDS ORDERED: FUROSEMIDE 40 MG/4 ML VIAL IV SCH (09:00)
--- NOTE | 2017-08-04 09:06 | Physician Query Form ---
CLICK EDIT DOCUMENT TO SELECT QUERY ANSWER --> OK --> SIGN Maye Castro RN, CCDS Certified Clinical Core Sucker W) [phone] (f) [phone] [email or web address] PROVIDERS: Make your selection(s) from the choices in EACH section by typing an "x" and enter comments in the comment section. Please use your independent medical judgment in providing your response. This request does not imply that any particular answer is desired or expected. CLINICAL INDICATORS: (Providers should not edit this section) The medical record indicates that the patient was admitted with elevated glucose , "chronic renal insufficiency", Creatinine of 2.50 on the 12th, and GFR of 30# . ---no IVF's noted---"Baseline creatinine 2.30#" Clarify which of the following most accurately represents the patient's renal status: ( ) Acute kidney injury (non-traumatic) ( ) Acute renal failure ( ) Acute renal failure with underlying Chronic Kidney Disease (CKD) - please provide stage below ( ) Acute renal failure with pathological renal lesion ( ) Acute renal failure with necrosis ( ) tubular ( ) medullary ( ) cortical ( x) CKD - please provide stage below ( ) End Stage Renal Disease ( ) Acute interstitial nephritis ( ) Hepatorenal syndrome ( ) Other, please specify: ( ) Clinically unable to determine Chronic Kidney Disease Stages Source: National Kidney Disease Foundation ( ) Stage I (eGFR > or = 90) ( ) Stage II (eGFR 60 - 89) (x ) Stage III (eGFR 30 - 59) ( ) Stage IV (eGFR 15 - 29) ( ) Stage V (eGFR < 15 or dialysis) COMMENTS: He has chronic kidney disease, HTN, DM, and is being established with filter tip catcher. PLEASE ALSO DOCUMENT RESPONSE IN PROGRESS NOTES AND/OR DISCHARGE SUMMARY Use of terms such as suspected, likely, or probable (associated with a specific diagnosis that is being evaluated, monitored, or treated as if it exists) are acceptable and can be restated in the discharge summary if not ruled out. MTDD
--- NOTE | 2017-08-04 09:26 | Event Note ---
Patient underwent nuclear stress testing this morning. Kevin protocol was initiated. Initially, patient's heart rate and blood pressure were responding appropriately to exercise. Patient was without complaints of chest pain, heaviness or tightness. He did have T-wave inversion in leads V1 and V2. Minimal CAMPO noted. After transition to stage II Kevin protocol, patient pressed the red stop button and on treadmill without warning to myself or nuclear medicine staff and said "I am done." He reported that he just could not go any further. Patient was then transitioned to a Lexiscan protocol. Lexiscan was administered. Patient tolerated this well. He was without complaints of chest pain, heaviness or tightness. Shortness of breath was noted. No arrhythmias or syncope. Overall, patient's stress test was nondiagnostic. Patient now on to final nuclear scan. Dr. Berkowitz to read, interpret and advise per
--- NOTE | 2017-08-04 09:26 | Cardiology Progress Note ---
Assessment and Plan (1) Dyspnea Status: Acute Assessment and plan: SEE PLAN OF CARE LISTED BELOW. Current Visit: Yes (2) Ischemic cardiomyopathy Status: Chronic Assessment and plan: SEE PLAN OF CARE LISTED BELOW. Current Visit: Yes (3) History of coronary artery bypass graft Status: Chronic Assessment and plan: SEE PLAN OF CARE LISTED BELOW. Current Visit: No (4) Chronic a-fib Status: Chronic Assessment and plan: SEE PLAN OF CARE LISTED BELOW. Current Visit: Yes (5) Chronic anticoagulation Status: Chronic Assessment and plan: SEE PLAN OF CARE LISTED BELOW. Current Visit: Yes (6) Hyperlipidemia Status: Chronic Assessment and plan: SEE PLAN OF CARE LISTED BELOW. Current Visit: Yes (7) Diabetes Status: Chronic Assessment and plan: SEE PLAN OF CARE LISTED BELOW. Current Visit: Yes (8) Hypertension Status: Chronic Assessment and plan: SEE PLAN OF CARE LISTED BELOW. Current Visit: Yes (9) Chronic renal insufficiency Status: Chronic Assessment and plan: SEE PLAN OF CARE LISTED BELOW. Current Visit: Yes Qualifiers: Chronic kidney disease stage: stage 3 (moderate) Qualified Code(s): N18.3 - Chronic kidney disease, stage 3 (moderate) (10) Congestive heart failure Status: Chronic Assessment and plan: SEE PLAN OF CARE LISTED BELOW. Current Visit: No Qualifiers: Congestive heart failure type: combined (11) Coronary artery disease Status: Chronic Assessment and plan: SEE PLAN OF CARE LISTED BELOW. Current Visit: No Qualifiers: Coronary Disease-Associated Artery/Lesion type: [place] artery [place] vs. transplanted heart: [place] heart Associated angina: without angina Qualified Code(s): I25.10 - Atherosclerotic heart disease of [place] coronary artery without angina pectoris Cardiology - PN: Subj Interval history: FENDER MECHANIC APPRENTICE: Dr. Alberto, new PCP: Dr. Sarah Woods SUMMARY: Mr. Heller, 71-year-old male with history of CHF, ischemic cardiomyopathy, EF 30% per echo December 2016, status post biventricular ICD/ pacemaker December 2016), CAD ([place] with multiple stents placed in [place], status post four-vessel CABG in 2005 and [place]), chronic atrial fibrillation, chronic anticoagulation with Eliquis, diabetes, hypertension, hyperlipidemia and chronic renal insufficiency. Patient has never followed up with [facility] cardiology. Reports that he was lost to cardiology follow-up several years ago. He denies having cath or stress test post CABG. Echocardiogram December 2016 reveals EF 30%. Patient admitted to [facility] with weakness. CT head revealed bilateral parietal chronic infarcts. 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 Small lacunar infarct to left thalamus. Patient denies clinical history of stroke. Neurology consulted. EEG pending. Suspect metabolic in origin as blood sugars were as high as 500 at admission. No evidence of TIA, seizure or epilepsy. Patient also had complaints of chronic dyspnea and easy fatigability which could be related to patient's underlying coronary artery disease. Therefore, cardiac stress test and echocardiogram was ordered. Patient is scheduled to undergo a cardiac stress test August 04, 2017. It was a suspected. Dr. Mckeon to evaluate today. Patient will also undergo MRI today. AUGUST 04, 2017: Patient continues to be followed for the following chronic, stable conditions: CAD, ischemic cardiomyopathy, atrial fibrillation, CHF, hyperlipidemia and chronic renal insufficiency. Patient is being followed for the following more acute, uncontrolled conditions: Diabetes (elevated glucose), dyspnea and fatigue. Patient was seen and examined in nuclear medicine prior to stress test he is without complaints of chest pain, heaviness or tightness. He. Continues to complain of intermittent dyspnea and easy fatigability. See event note for details on stress test. Patient is hemodynamically stable. Creatinine stable today at 2.4. This appears to be around patient's baseline. Glucose is improving. 650 at admission. Today it is 199. Trivial troponin. However, this is in the setting of chronic renal insufficiency. Continue aspirin, beta-blockade, statin and nitrates. Further recommendations to follow once stress test and echocardiogram have been read. I will further discuss Dr. Berkowitz and await his additional recommendations. AUGUST 04, 2017 REVIEW OF SYSTEMS: CARDIOVASCULAR: Denies chest pain, heaviness or tightness. Denies orthopnea. Denies palpitations/heart racing. GASTROINTESTINAL: Denies nausea, vomiting and diarrhea. RESPIRATORY: Confirms dyspnea on exertion. Intermittent use of oxygen. IMPRESSION AND PLAN: 1. CHRONIC DYSPNEA - Echocardiogram today. Patient underwent Lexiscan cardiac stress test. Results pending. Further recommendations to follow after this test has been read. 2. HISTORY OF ISCHEMIC CARDIOMYOPATHY - EF 30% by echo December 2016. No evidence of overt heart failure. We will repeat echocardiogram this hospitalization. Continue beta-blockade, diuretics and aspirin. Will monitor renal function closely with Lasix. Avoiding BLANKA inhibitor/ARB due to fear of worsening renal function. Hydralazine added, continue Imdur for afterload reduction. Monitor strict I's and O's and daily weights. 3. HISTORY OF CAD, CABG 2005 - Continue aspirin, beta-blockade, nitrates and statin. Avoiding BLANKA inhibitor/ARB due to fear of worsening renal function. 4. CHRONIC A. FIB - Rate controlled this hospitalization. Continue with current rate controlling agents. Will monitor for RVR and adjust medications accordingly. Continue Eliquis for stroke prevention. 5. CHRONIC ANTICOAGULATION - Continue Eliquis for stroke prevention. Monitor daily CBC. 6. HYPERLIPIDEMIA - LDL 88. Given history of CAD, I will change patient to high intensity statin. Lipid panel in 4-6 weeks. 7. CHRONIC CONGESTIVE HEART FAILURE - No overt heart failure currently. Continue with Lasix. Strict I's and O's and daily weights. 8. TRIVIAL TROPONIN - This in the setting of chronic renal insufficiency. No evidence of ACS. 9. DIABETES - Management per attending. 10. HYPERTENSION - Currently well controlled. Continue to monitor blood pressure and adjust medications accordingly. Clinically 11. CHRONIC RENAL INSUFFICIENCY, STAGE 3 - Creatinine today 2.4. This appears to be baseline. Continue to monitor daily. 12. STATUS POST BIVENTRICULAR ICD/PACEMAKER - This was placed with Dr. Berkowitz December 2016. Exam (Progress Note) - Constitutional Vitals: Period Temp Pulse Resp BP Sys/Fernando Pulse Ox Last 24 Hr 97.0 F-98.3 F 60-71 16-20 137-178/80-111 98-99 Exam: General: Appears well with no apparent distress. Pleasant and cooperative. Appears comfortable. HEENT: PERRL, normocephalic, atraumatic. Mucous membranes moist. No jaundice noted. Conjunctiva moist and clear, sclerae anicteric Neck: No JVD/HJR, no thyromegaly or lymphadenopathy noted. No carotid bruit appreciated Cardiac: Pacer rhythm. No murmur rub or gallop. Lungs: Clear to auscultation without accessory muscle use to assist the respiratory pattern. Not requiring oxygen. Abdomen: Soft, bowel sounds normoactive. Nontender and nondistended. No abdominal bruit or thrill noted. No masses noted. Extremities: No clubbing, cyanosis noted. No edema noted. Upper extremity pulses 2+. Lower extremity pulses 2+. Capillary refill less than 3 seconds. Skin: No unusual lesions or rashes. No skin breakdown appreciated. Neuro: Awake, alert and oriented 3. Moves all extremities well without hemiparesis or paralysis. No essential tremor is appreciated. Result/EKG - Labs CBC & BMP: 08/02/17 04:25 08/04/17 04:32 Lab Results: I have reviewed the past 24 hour labs Labs: Laboratory Results - last 24 hr 08/03/17 08/03/17 08/03/17 09:52 12:14 16:04 Sodium 138 Potassium 4.1 Chloride 103 Carbon Dioxide 27 Anion Gap 12.1 BUN 39 H Creatinine 2.30 H GFR Calculation 33 BUN/Creatinine Ratio 16.00 Glucose 220 H POC Glucose 242 H 296 H Calculated Osmolality 290.7 Calcium 8.2 L 08/04/17 08/04/17 08/04/17 00:22 04:32 06:14 Sodium 140 Potassium 3.5 Chloride 103 Carbon Dioxide 26 Anion Gap 14.5 BUN 40 H Creatinine 2.40 H GFR Calculation 31 BUN/Creatinine Ratio 16.00 Glucose 199 H POC Glucose 188 H 399 H Calculated Osmolality 294.4 Calcium 8.2 L 08/04/17 08/04/17 06:26 06:44 Sodium Potassium Chloride Carbon Dioxide Anion Gap BUN Creatinine GFR Calculation BUN/Creatinine Ratio Glucose POC Glucose 196 H 197 H Calculated Osmolality Calcium Quality Measures - VTE Contraindication to Pharmacological VTE Prophylaxis: High Risk of Bleeding
[2017-08-04] MEDS ORDERED: hydrALAZINE 25 MG TABLET PO SCH (10:30)
--- NOTE | 2017-08-04 11:39 | Sleep Medicine Consult ---
Assessment and Plan (1) Unspecified sleep apnea Status: Acute Assessment and plan: His history certainly is concerning for sleep apnea with profound sleepiness and witnessed apneas. Particularly with regard to his comorbidities, sleep evaluation is indicated. We will start with home sleep testing. Current Visit: Yes (2) Essential hypertension Status: Chronic Assessment and plan: The prevalence rate for obstructive sleep apnea patients with hypertension is 35 %. That rate can be as high as 80% in patients who require 4 or more medications for blood pressure control. Current Visit: Yes (3) Diabetes mellitus Status: Chronic Assessment and plan: The prevalence rate for obstructive sleep apnea in patients with type 2 diabetes can be as high as 86%. Those patients with moderate to severe obstructive sleep apnea are at a greater risk for diabetic nephropathy and neuropathy. Compliance with CPAP therapy for these patients can lead to improvement in glycemic control and improvement in insulin sensitivity. Current Visit: Yes Qualifiers: Diabetes mellitus type: type 2 Diabetes mellitus complication status: with hyperglycemia Diabetes mellitus terminal system operator insulin use: with terminal system operator use Qualified Code(s): E11.65 - Type 2 diabetes mellitus with hyperglycemia; Z79.4 - assisted (current) use of insulin; Z79.4 - termite control servicer (current) use of insulin ; Z79.4 - termite control servicer (current) use of insulin; Z79.4 - assisted (current) use of insulin (4) Congestive heart failure Status: Chronic Assessment and plan: Untreated sleep apnea certainly can be a risk factor for congestive heart failure. Sleep apnea, untreated, can exacerbate both systolic and diastolic congestive heart failure. Treating these patients can help improve management of CHF and has been shown to improve ejection fraction in those with systolic dysfunction. Current Visit: No Qualifiers: Congestive heart failure type: combined History of Present Illness Chief complaint: Sleep apnea History of present illness: Mr. Heller is a 71 year old male admitted with syncopal episode felt most likely metabolic in origin. He has significant chronic health issues that include ischemic cardiomyopathy, diabetes, hypertension, and previous defibrillator placement. On review of his neurological evaluation, it was noted that he had had evidence multiple prior old strokes. During the course of his evaluation, it was noted that he had a history of snoring and abnormal breathing during sleep. He has a stop bang score of 6 and an [place] sleepiness score of 18. His states that he snores loudly and that he will stop breathing during his sleep. He does awaken frequently to urinate and is unrefreshed upon awakening. Home Medications Medication Instructions Recorded Confirmed Type Aspirin [Ecotrin] 81 mg PO DAILY 07/03/16 07/31/17 History Gabapentin Cap/Tab [Neurontin 300 mg PO AC SUPPER 07/03/16 07/31/17 History Cap/Tab] Insulin Detemir [Levemir FlexPen] 15 unit SUBCUT AC BREAKFAST 07/03/16 07/31/17 History Glimepiride [Amaryl] 4 mg PO DAILY W/BREAKFAST tablet 07/09/16 07/31/17 Rx Lovastatin [Mevacor] 40 mg PO DAILY W/SUPPER tablet 07/09/16 07/31/17 Rx Furosemide Tab [Lasix Tab] 20 mg PO DAILY 12/24/16 07/31/17 History Sertraline [Zoloft] 25 mg PO DAILY 12/24/16 07/31/17 History Apixaban [Eliquis] 2.5 mg PO BID 07/31/17 07/31/17 History Ferrous Gluconate 240 mg PO DAILY 07/31/17 07/31/17 History Isosorbide Mononitrate [Imdur] 60 mg PO DAILY 07/31/17 07/31/17 History Metoprolol Tartrate Tab [Lopressor 100 mg PO BID W/MEALS 07/31/17 07/31/17 History Tab] Potassium Chloride 10 meq PO DAILY 07/31/17 07/31/17 History cloNIDine TAB [Catapres Tab] 0.2 mg PO BEDTIME 07/31/17 07/31/17 History Allergies Allergy/AdvReac Type Severity Reaction Status Date / Time Sulfa (Sulfonamide Allergy RASH Verified 07/31/17 17:34 Antibiotics) Review of systems: Otherwise unremarkable from a sleep medicine standpoint. Exam (Pulmonay) H&P - Constitutional Vitals: Period Temp Pulse Resp BP Sys/Fernando Pulse Ox Last 24 Hr 97.0 F-98.3 F 60-71 16-20 137-178/80-111 98-99 Exam: He is alert and responsive in no acute distress. Pupils equal round reactive to light and accommodation. Extraocular movements intact. Oropharynx with a class III Mallampati exam. Neck is supple without adenopathy or thyromegaly. No supraclavicular adenopathy is noted. Chest with symmetrical breath sounds without focal wheeze, rhonchi, or rales. Cardiac exam reveals a regular rhythm without murmur or gallop. Abdomen soft nontender without palpable hepatosplenomegaly or mass. Extremities are without clubbing, cyanosis, or edema. Neurologically, he is grossly intact. He moves all extremities with good strength and ambulates with a normal gait. Medical,Surgical,& Family Hx - Medical History Cardio: History of: Cardiac Dysrhythmia (HX AFIB), CHF, CAD, Hypertension, [place], Pacemaker Neurology: No history of: Seizures Endocrine: History of: Diabetes Mellitus (IDDM), Diabetes Mellitus (NIDDM), Dyslipidemia Hematology: History of: Anemia - Surgical History Cardiac Surgeries: Sugical HX of: Cardiac Catheterization (WITH STENTS), Cardiac Surgery (CABG) Abdominal Surgeries: Patient denies: Abdominal Surgery - Family History Family History: Reports;: Family Diabetes (mother), Family Heart Disease (father ), Family Hypertension (mother) - Social History Smoking Status: Never smoker Frequency of Alcohol Use: None Type of Drug Use: None Results - Labs CBC & BMP: 08/02/17 04:25 08/04/17 04:32 Lab Results: I have reviewed the past 24 hour labs Labs: TSH normal Quality Measures - VTE Contraindication to Pharmacological VTE Prophylaxis: High Risk of Bleeding
--- NOTE | 2017-08-04 11:55 | Magnetic Resonance Report ---
Exam: MR head/brain wo con Date: 08/04/2017 9:00 AM Comparison: CT brain without contrast Indication: Tremors , visual changes with abnormal CT Technique:[Multiple acquisitions were obtained including sagittal T1, coronal T2, and axial T1, T2, GRE, and T1 scans without contrast only. Scans were obtained on 1.5 Sara magnet.] Findings: The ventricles remain at the upper limits normal in size with no midline displacement. The pituitary has a normal appearance and the cerebellar tonsils are normal in their location. No acute infarction is identified in the diffusion scans. Chronic bilateral parietal and cerebellar infarcts are noted. Minimal hemosiderin deposition within the finding in the left parietal lobe. Chronic lacunar infarcts in the left thalamus and right [place] radiata. 4 mm hypointense finding in the anterior aspect of the third ventricle. No evidence of acute hemorrhage, mass, or extracerebral collection. Diffuse atrophy with FLAIR/T2 hyperintensities. No acute findings in the orbits. Mucosal thickening/fluid which is most pronounced in the right sphenoid sinus. Fluid in the left mastoid air cells. Impression: No acute infarction is identified with chronic bilateral parietal, bilateral cerebellar, right [place] radiata, and left thalamic infarcts. Minimal hemosiderin deposition within the chronic infarct in the left parietal lobe which can be seen with remote hemorrhage. Diffuse atrophy and moderate microvascular disease. 4 mm finding in the anterior third ventricle does not have the imaging characteristics of a colloid cyst and may be related to calcification. It is difficult to exclude calcification within an aneurysm as previously noted. MRI may of the [place] recommended for further evaluation. Sinusitis with incomplete in the with nonspecific fluid in the left mastoid air cells. PROCEDURE INTERPRETED AT [facility] DEPARTMENT OF RADIOLOGY Final Report Signed by: Dr. Brigette Ward
--- NOTE | 2017-08-04 12:24 | Order Completion Report ---
See report scanned to EMR
[2017-08-04] MEDS: SERTRALINE 25 MG TABLET PO SCH (12:33)
[2017-08-04] MEDS: ISOSORBIDE MONONITRATE 60 MG TABLET PO SCH (12:33)
[2017-08-04] MEDS: APIXABAN 2.5 MG TABLET PO SCH (12:33)
[2017-08-04] MEDS: DOCUSATE SODIUM 100 MG CAPSULE PO SCH ×2 (12:33→21:55)
[2017-08-04] MEDS: PANTOPRAZOLE 40 MG TABLET PO SCH (12:34)
[2017-08-04] MEDS: METOPROLOL TARTRATE 100 MG TABLET PO SCH (12:34)
[2017-08-04] MEDS: GLIMEPIRIDE 4 MG TABLET PO SCH ×2 (12:41→17:08)
--- NOTE | 2017-08-04 14:02 | Nephrology Consult Note ---
History of Present Illness Chief complaint: CRF History of present illness: Mr. Heller is a 71 year old male admitted with confusion and hyperglycemia. He has been diabetic for many years. He has chronic renal failure hypertension, chronic A. fib and CAD. He currently denies shortness of breath. He has had no chest pain. Home Medications Medication Instructions Recorded Confirmed Type Aspirin [Ecotrin] 81 mg PO DAILY 07/03/16 07/31/17 History Gabapentin Cap/Tab [Neurontin 300 mg PO AC SUPPER 07/03/16 07/31/17 History Cap/Tab] Insulin Detemir [Levemir FlexPen] 15 unit SUBCUT AC BREAKFAST 07/03/16 07/31/17 History Glimepiride [Amaryl] 4 mg PO DAILY W/BREAKFAST tablet 07/09/16 07/31/17 Rx Lovastatin [Mevacor] 40 mg PO DAILY W/SUPPER tablet 07/09/16 07/31/17 Rx Furosemide Tab [Lasix Tab] 20 mg PO DAILY 12/24/16 07/31/17 History Sertraline [Zoloft] 25 mg PO DAILY 12/24/16 07/31/17 History Apixaban [Eliquis] 2.5 mg PO BID 07/31/17 07/31/17 History Ferrous Gluconate 240 mg PO DAILY 07/31/17 07/31/17 History Isosorbide Mononitrate [Imdur] 60 mg PO DAILY 07/31/17 07/31/17 History Metoprolol Tartrate Tab [Lopressor 100 mg PO BID W/MEALS 07/31/17 07/31/17 History Tab] Potassium Chloride 10 meq PO DAILY 07/31/17 07/31/17 History cloNIDine TAB [Catapres Tab] 0.2 mg PO BEDTIME 07/31/17 07/31/17 History Allergies Allergy/AdvReac Type Severity Reaction Status Date / Time Sulfa (Sulfonamide Allergy RASH Verified 07/31/17 17:34 Antibiotics) Medical,Surgical,& Family Hx - Medical History Cardio: History of: Cardiac Dysrhythmia (HX AFIB), CHF, CAD, Hypertension, [place], Pacemaker Neurology: No history of: Seizures Endocrine: History of: Diabetes Mellitus (IDDM), Diabetes Mellitus (NIDDM), Dyslipidemia Hematology: History of: Anemia - Surgical History Cardiac Surgeries: Sugical HX of: Cardiac Catheterization (WITH STENTS), Cardiac Surgery (CABG) Abdominal Surgeries: Patient denies: Abdominal Surgery - Family History Family History: Reports;: Family Diabetes (mother), Family Heart Disease (father ), Family Hypertension (mother) - Social History Smoking Status: Never smoker Frequency of Alcohol Use: None Type of Drug Use: None Review of Systems 12 point system: reviewed and no additional remarkable complaints except as stated Exam - Vital Signs Vital signs: Period Temp Pulse Resp BP Sys/Fernando Pulse Ox Last 24 Hr 97.0 F-98.3 F 60-77 16-20 137-183/80-111 96-99 Exam: Gen.: Alert and oriented x3. ENT: Pupils equal round reactive to light. EOMs intact. Mucous membranes moist. Neck: Supple. No JVD or bruit. Cardiovascular: Regular rate and rhythm. No murmur rub or gallop Lungs: Clear Abdomen: Soft. Nontender. Positive bowel sounds. No organomegaly Extremities: No edema Results - Labs CBC & BMP: 08/02/17 04:25 08/04/17 04:32 Assessment and Plan (1) Chronic kidney disease, stage III (moderate) Status: Acute Assessment and plan: 71-year-old man with: * CRF 3. Baseline creatinine 2. Current volume status normal * Diabetes mellitus. Poorly controlled * Hypertension suboptimal control. He has not been taking clonidine in the a.m. as instructed * Chronic A. fib * CAD * Diastolic dysfunction Current Visit: Yes (2) Hyperglycemia Status: Acute Current Visit: Yes (3) Chronic a-fib Status: Chronic Current Visit: Yes (4) Diabetes mellitus Status: Chronic Current Visit: Yes Qualifiers: Diabetes mellitus type: type 2 Diabetes mellitus complication status: with hyperglycemia Diabetes mellitus retirement insulin use: with termite treater use Qualified Code(s): E11.65 - Type 2 diabetes mellitus with hyperglycemia; Z79.4 - longterm (current) use of insulin; Z79.4 - longterm (current) use of insulin ; Z79.4 - longterm (current) use of insulin; Z79.4 - termite control service representative (current) use of insulin (5) Essential hypertension Status: Chronic Current Visit: Yes (6) Ischemic cardiomyopathy Status: Chronic Current Visit: Yes (7) History of coronary artery bypass graft Status: Chronic Current Visit: No
[2017-08-04] MEDS: ASPIRIN EC 81 MG TABLET PO SCH (15:27)
[2017-08-04] MEDS: INSULIN GLARGINE 100 UNIT/ML SUBCUT SCH (21:53)
[2017-08-04] MEDS: CARVEDILOL 25 MG TABLET PO SCH (21:55)
[2017-08-04] MEDS: ATORVASTATIN 40 MG TABLET PO SCH (21:55)
[2017-08-04] MEDS: APIXABAN 5 MG TABLET PO SCH (21:55)
[2017-08-04] MEDS: GABAPENTIN 300 MG CAPSULE PO SCH (21:58)
--- NOTE | 2017-08-04 23:03 | Internal Med Progress Note ---
Assessment and Plan (1) Paroxysmal a-fib Status: Chronic Current Visit: Yes (2) Pacemaker Status: Chronic Current Visit: Yes (3) Hyperglycemia Status: Acute Current Visit: Yes (4) Congestive heart failure Status: Chronic Current Visit: No Qualifiers: Congestive heart failure type: combined (5) Coronary artery disease Status: Chronic Current Visit: No Qualifiers: Coronary Disease-Associated Artery/Lesion type: [place] artery [place] vs. transplanted heart: [place] heart Associated angina: without angina Qualified Code(s): I25.10 - Atherosclerotic heart disease of [place] coronary artery without angina pectoris (6) Diabetes mellitus Status: Chronic Current Visit: Yes Qualifiers: Diabetes mellitus type: type 2 Diabetes mellitus complication status: with hyperglycemia Diabetes mellitus nursing home insulin use: with parts counterman use Qualified Code(s): E11.65 - Type 2 diabetes mellitus with hyperglycemia; Z79.4 - [place] terminal operator (current) use of insulin; Z79.4 - [place] terminal operator (current) use of insulin ; Z79.4 - [place] terminal operator (current) use of insulin; Z79.4 - [place] terminal operator (current) use of insulin (7) Essential hypertension Status: Chronic Current Visit: Yes (8) Unspecified sleep apnea Status: Chronic Current Visit: Yes Internal Medicine - PN: Subj Interval history: Mr. Heller is a 71 year old male with history of DM, HTN, CAD with stents, CABG , CHF, cardiomyopathy with LVEF of 30%, dyslipidemia, chronic atrial fibrillation, pacemaker placement, old strokes, who presented to clinic yesterday with worsening tremors and confusion. He was found to have significantly elevated glucose of >[address] brain indicated multiple small strokes. MRI brain ordered for next week from clinic to further delineate area of abnormality on CT. August 02: Feeling much better today with greatly improved glucose values. No appreciable tremors. Will reschedule MRI brain for Friday or Friday since he is here in hospital. August 03: He will have MRI tomorrow. He reports shortness of breath crossing the room, and consulted Dr. Alberto to further evaluate. He has not followed up with cardiology in years. Also, consulted Dr. Mckeon for obstructive sleep apnea. August 04: He is having overnight hospital sleep eval. MRI brain in the morning. Exam (Progress Note) - Constitutional Vitals: Period Temp Pulse Resp BP Sys/Fernando Pulse Ox Last 24 Hr 97.0 F-99.0 F 60-77 16-20 135-183/78-106 95-98 Exam: General appearance: no acute distress - Respiratory Respiratory exam: Present: clear to auscultation bilaterally - Cardiovascular Cardiovascular exam: Present: regular rate and rhythm - GI/Abdominal GI/Abdominal exam: Present: soft. Absent: tenderness - Extremities Exam Extremities exam: no edema to lower extremities - Neurological Exam Neurological exam: Present: alert - Psychiatric Psychiatric exam: Present: normal mood - Skin Skin exam: Present: warm, dry Results - Labs CBC & BMP: 08/05/17 04:56 08/05/17 04:56 Quality Measures - VTE Contraindication to Pharmacological VTE Prophylaxis: High Risk of Bleeding Specialty Discharge - Follow Up or Referrals Follow up with: Jose Berkowitz MD [Physician] - 2 Weeks (EKG, BMP)
[2017-08-05] MEDS: INSULIN REGULAR 100 UNIT/ML SUBCUT SCH ×4 (02:48→18:47)
[2017-08-05 05:49] LABS: Basophils # 0.1 10*3/uL (0.0-0.2); Basophils % 0.6 % (0.0-0.8); Eosinophils # 0.2 10*3/uL (0.0-0.87); Eosinophils % 2.7 % (0.00-10.9); Hematocrit 33.9 VOL% (42.0-52.0); Hemoglobin 11.8 GM/DL (14.0-18.0); Immature Granulocytes % 0.3 %; Immature Granulocytes Absolute 0.03 #; Lymphocytes # 1.9 10*3/uL (1.4-4.0); Lymphocytes % 21.3 % (21.2-54.2); Mean Corpuscular HGB Conc 34.8 GM/DL (32-36); Mean Corpuscular Hemoglobin 31 PG (27-34); Mean Corpuscular Volume 88.1 FL (87-102); Mean Platelet Volume 11.6 FL (9.6-12.0); Monocytes # 0.6 10*3/uL (0.11-0.8); Monocytes % 6.6 % (1.7-12.7); Neutrophils # 6.2 10*3/uL (1.4-7.4); Neutrophils % 68.5 % (38.7-73.9); Platelet Count 151 T/CUMM (130-400); Red Blood Count 3.85 MC/CUMM (3.8-5.5); Red Cell Distribution Width 13.2 % (9.3-17.3)
[2017-08-05 06:13] LABS: Calcium 8.2 MG/DL (8.5-10.1); Osmolality,Calculated 290.3 MOS/KG (273-304); Potassium 3.1 MMOL/L (3.5-5.1)
--- NOTE | 2017-08-05 07:59 | Cardiology Progress Note ---
Assessment and Plan (1) Dyspnea Status: Acute Assessment and plan: SEE PLAN OF CARE LISTED BELOW. Current Visit: Yes (2) Ischemic cardiomyopathy Status: Chronic Assessment and plan: SEE PLAN OF CARE LISTED BELOW. Current Visit: Yes (3) History of coronary artery bypass graft Status: Chronic Assessment and plan: SEE PLAN OF CARE LISTED BELOW. Current Visit: No (4) Chronic anticoagulation Status: Chronic Assessment and plan: SEE PLAN OF CARE LISTED BELOW. Current Visit: Yes (5) Hyperlipidemia Status: Chronic Assessment and plan: SEE PLAN OF CARE LISTED BELOW. Current Visit: Yes (6) Diabetes Status: Chronic Assessment and plan: SEE PLAN OF CARE LISTED BELOW. Current Visit: Yes (7) Hypertension Status: Chronic Assessment and plan: SEE PLAN OF CARE LISTED BELOW. Current Visit: Yes (8) Chronic renal insufficiency Status: Chronic Assessment and plan: SEE PLAN OF CARE LISTED BELOW. Current Visit: Yes Qualifiers: Chronic kidney disease stage: stage 3 (moderate) Qualified Code(s): N18.3 - Chronic kidney disease, stage 3 (moderate) (9) Congestive heart failure Status: Chronic Assessment and plan: SEE PLAN OF CARE LISTED BELOW. Current Visit: No Qualifiers: Congestive heart failure type: combined (10) Coronary artery disease Status: Chronic Assessment and plan: SEE PLAN OF CARE LISTED BELOW. Current Visit: No Qualifiers: Coronary Disease-Associated Artery/Lesion type: [place] artery [place] vs. transplanted heart: ambler heart Associated angina: without angina Qualified Code(s): I25.10 - Atherosclerotic heart disease of ambler coronary artery without angina pectoris (11) Persistent atrial fibrillation Status: Chronic Assessment and plan: SEE PLAN OF CARE LISTED BELOW. Current Visit: Yes Cardiology - PN: Subj Interval history: HIGH SCHOOL LEARNING SUPPORT TEACHER: Dr. Berkowitz PCP: Dr. Sarah Woods SUMMARY: Mr. Heller, 71-year-old male with history of CHF, ischemic cardiomyopathy, EF 30% per echo December 2016, status post biventricular ICD/ pacemaker December 2016), CAD ([place] with multiple stents placed in [place], status post four-vessel CABG in 2005 and [place]), persistent atrial fibrillation, chronic anticoagulation with Eliquis, diabetes, hypertension, hyperlipidemia and chronic renal insufficiency. Patient has never followed up with [facility] cardiology. Reports that he was lost to cardiology follow-up several years ago. He denies having cath or stress test post CABG. Echocardiogram December 2016 reveals EF 30%. Patient admitted to [facility] with weakness, symptomatic severe hyperglycemia which has improved. CT head revealed bilateral parietal chronic infarcts. 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 Small lacunar infarct to left thalamus. Patient denies clinical history of stroke. Neurology consulted. EEG pending. Suspect metabolic in origin as blood sugars were as high as 500 at admission. No evidence of TIA, seizure or epilepsy. Patient also had complaints of chronic dyspnea and easy fatigability which could be related to patient's underlying coronary artery disease. Therefore, cardiac stress test and echocardiogram was ordered. Cardiac stress test revealed no active ischemia, ejection fraction 35-40%. Echocardiogram revealed EF 40%. Grade 3 diastolic dysfunction. Moderate concentric LVH. August 04 brain MRI revealed no acute infarction with chronic bilateral parietal, bilateral cerebellar, right kenney radiata and left traumatic infarcts. MRI of the [place] of [place] was recommended for further evaluation. Will defer this to attending. Dr. Mckeon was consulted to evaluate the patient for sleep apnea. He plans to begin with HST. AUGUST 05, 2017: Patient continues to be followed for the following chronic, stable conditions: CAD, ischemic cardiomyopathy, atrial fibrillation, CHF, hyperlipidemia and chronic renal insufficiency. Patient is being followed for the following more acute, uncontrolled conditions: Diabetes (elevated glucose), dyspnea and fatigue. Patient was seen and examined on the telemetry unit. He is doing well this morning and without complaints. Denies chest pain, heaviness or tightness. Continues to have intermittent dyspnea and easy fatigability. Underwent stress testing yesterday which did not reveal any active ischemia. EF calculated at 35-40%. Blood pressure medications were adjusted yesterday. Patient is on high-dose beta-blockade. Patient is hemodynamically stable. Blood pressure is well controlled. Blood sugar is also improving. This morning 108. Renal insufficiency continues. Creatinine today slightly improved at 2.3. Nephrology is following. Appreciate their recommendations. From a cardiac standpoint, patient appears to be doing reasonably well. Patient is stable for discharge from a cardiac standpoint. He will follow with Dr. Berkowitz in a few weeks in the cardiology clinic. AUGUST 05, 2017 REVIEW OF SYSTEMS: CARDIOVASCULAR: Denies chest pain, heaviness or tightness. Denies orthopnea. Denies palpitations/heart racing. GASTROINTESTINAL: Denies nausea, vomiting and diarrhea. RESPIRATORY: Confirms dyspnea on exertion. Not requiring oxygen. IMPRESSION AND PLAN: 1. CHRONIC DYSPNEA - No overt heart failure. Echocardiogram revealed EF 40% with grade 3 diastolic dysfunction. Lexiscan cardiac stress test performed yesterday which did not reveal any active ischemia. Cardiac stand point, patient seems to be doing reasonably well and is stable from a cardiac standpoint for discharge. He will follow with Woo in a few weeks in the cardiology clinic. 2. HISTORY OF ISCHEMIC CARDIOMYOPATHY - EF 40% by echo 2016. Fair response to PRICING MANAGER which was placed December 2016. No evidence of overt heart failure. Continue beta-blockade, diuretics and aspirin. Will monitor renal function closely with Lasix. Nephrology is now following. Avoiding BLANKA inhibitor/ARB due to fear of worsening renal function, patient was challenged with BLANKA inhibitor in the past and did poorly. Entresto has been considered in the past however, his renal function has never improved enough in order to allow this medication. Continue to monitor strict I's and O's and daily weights. 3. HISTORY OF CAD, CABG 2005 - Continue aspirin, beta-blockade, nitrates and statin. Avoiding BLANKA inhibitor/ARB due to fear of worsening renal function. 4. PERSISTENT A. FIB - Currently paced. Continue with current rate controlling agents. Will monitor for rate and rhythm on monitor and storage bin tender and adjust medications accordingly. Continue Eliquis for stroke prevention. Heart rate well controlled in persistent atrial fibrillation. On 03/2017: 72% bivp, 35 % vsrp. If remains symptomatic from CHF, despite better controlled blood pressure and diabetes, he could be a candidate for PVI or AVN ablation. 5. CHRONIC ANTICOAGULATION - Continue Eliquis for stroke prevention. Monitor daily CBC. 6. HYPERLIPIDEMIA - LDL 88. Continue high intensity statin. Repeat lipid panel in 4-6 weeks. 7. CHRONIC CONGESTIVE HEART FAILURE, SYSTOLIC AND DIASTOLIC DYSFUNCTION - No evidence of overt heart failure currently. Continue with Lasix. Strict I's and O's and daily weights. 8. TRIVIAL TROPONIN - This in the setting of chronic renal insufficiency. No evidence of ACS. 9. DIABETES - Difficult to control. Management per attending. 10. HYPERTENSION - Currently well controlled. Continue to monitor blood pressure and adjust medications accordingly. 11. CHRONIC RENAL DISEASE, STAGE 3 - Baseline creatinine around 2. Creatinine today 2.3. Continue to monitor with daily BMP. Nephrology now on board. Appreciate their recommendations. 12. STATUS POST BIVENTRICULAR ICD/PACEMAKER - This was placed per Dr. Berkowitz December 2016. 13. HYPOKALEMIA - Potassium replacement protocol has been ordered. Daily BMP. Exam (Progress Note) - Constitutional Vitals: Period Temp Pulse Resp BP Sys/Fernando Pulse Ox Last 24 Hr 97.0 F-99.0 F 60-77 16-20 99-183/57-106 95-98 Exam: General: Appears well with no apparent distress. Pleasant and cooperative. Appears comfortable. HEENT: PERRL, normocephalic, atraumatic. Mucous membranes moist. No jaundice noted. Conjunctiva moist and clear, sclerae anicteric Neck: No JVD/HJR, no thyromegaly or lymphadenopathy noted. No carotid bruit appreciated Cardiac: Paced rhythm. No murmur rub or gallop. Lungs: Clear to auscultation without accessory muscle use to assist the respiratory pattern. Not requiring oxygen. Abdomen: Soft, bowel sounds normoactive. Nontender and nondistended. No abdominal bruit or thrill noted. No masses noted. Extremities: No clubbing, cyanosis noted. No edema noted. Upper extremity pulses 2+. Lower extremity pulses 2+. Capillary refill less than 3 seconds. Skin: No unusual lesions or rashes. No skin breakdown appreciated. Neuro: Awake, alert and oriented 3. Moves all extremities well without hemiparesis or paralysis. No essential tremor is appreciated. Result/EKG - Labs CBC & BMP: 08/05/17 04:56 08/05/17 04:56 Lab Results: I have reviewed the past 24 hour labs Labs: Laboratory Results - last 24 hr 08/04/17 08/04/17 08/05/17 11:59 18:02 04:56 WBC 9.0 RBC 3.85 Hgb 11.8 L Hct 33.9 L MCV 88.1 MCH 31 MCHC 34.8 RDW 13.2 Plt Count 151 MPV 11.6 Neut % (Auto) 68.5 Lymph % (Auto) 21.3 Bailey % (Auto) 6.6 Eos % (Auto) 2.7 Baso % (Auto) 0.6 Neut # (Auto) 6.2 Lymph # (Auto) 1.9 Bailey # (Auto) 0.6 Eos # (Auto) 0.2 Baso # (Auto) 0.1 Immature Gran % 0.3 Nucleated RBC % 0.0 Immature Gran # 0.03 Nucleated RBCs # 0.00 Immature Plt Fraction 0.0 Sodium Potassium Chloride Carbon Dioxide Anion Gap BUN Creatinine GFR Calculation BUN/Creatinine Ratio Glucose POC Glucose 190 H 262 H Calculated Osmolality Calcium Magnesium 08/05/17 04:56 WBC RBC Hgb Hct MCV MCH MCHC RDW Plt Count MPV Neut % (Auto) Lymph % (Auto) Bailey % (Auto) Eos % (Auto) Baso % (Auto) Neut # (Auto) Lymph # (Auto) Bailey # (Auto) Eos # (Auto) Baso # (Auto) Immature Gran % Nucleated RBC % Immature Gran # Nucleated RBCs # Immature Plt Fraction Sodium 141 Potassium 3.1 L Chloride 105 Carbon Dioxide 28 Anion Gap 11.1 BUN 40 H Creatinine 2.30 H GFR Calculation 33 BUN/Creatinine Ratio 17.00 Glucose 92 POC Glucose Calculated Osmolality 290.3 Calcium 8.2 L Magnesium 2.0 Quality Measures - VTE Contraindication to Pharmacological VTE Prophylaxis: High Risk of Bleeding Specialty Discharge - Follow Up or Referrals Follow up with: Jose Berkowitz MD [Physician] - 2 Weeks (EKG, BMP)
[2017-08-05] MEDS: CARVEDILOL 25 MG TABLET PO SCH ×2 (08:38→21:40)
[2017-08-05] MEDS: ASPIRIN EC 81 MG TABLET PO SCH (08:38)
[2017-08-05] MEDS: ISOSORBIDE MONONITRATE 60 MG TABLET PO SCH (08:38)
[2017-08-05] MEDS: DOCUSATE SODIUM 100 MG CAPSULE PO SCH ×2 (08:38→21:41)
[2017-08-05] MEDS: POTASSIUM CHLORIDE 20 MEQ TABLET PO PRN ×3 (08:39→14:13)
[2017-08-05] MEDS: APIXABAN 5 MG TABLET PO SCH ×2 (08:39→21:41)
[2017-08-05] MEDS: PANTOPRAZOLE 40 MG TABLET PO SCH (08:39)
[2017-08-05] MEDS: SERTRALINE 25 MG TABLET PO SCH (08:39)
[2017-08-05] MEDS: FUROSEMIDE 40 MG TABLET PO SCH (08:39)
[2017-08-05] MEDS: GLIMEPIRIDE 4 MG TABLET PO SCH ×2 (08:39→18:47)
--- NOTE | 2017-08-05 11:35 | Nephrology Progress Note ---
Nephrology - PN: Subj Interval history: He denies shortness of breath today. No GI symptoms Exam (PN)-Nephrology - Vital Signs Vital signs: Period Temp Pulse Resp BP Sys/Fernando Pulse Ox Last 24 Hr 97.0 F-99.0 F 60-77 15-20 99-183/57-106 95-98 Exam: ENT: Normal Cardiovascular: Regular rate and rhythm. No murmur rub or gallop Lungs: Clear Extremities: No edema - Lab 08/05/17 04:56 08/05/17 04:56 Most recent lab results Calcium 8.2 MG/DL (8.5-10.1) L 08/05/17 04:56 Magnesium 2.0 MG/DL (1.8-2.4) 08/05/17 04:56 Assessment and Plan (1) Chronic kidney disease, stage III (moderate) Status: Acute Assessment and plan: 71-year-old man with: * CRF 3. Baseline creatinine 2. Current volume status normal. Stable for discharge from my standpoint * Diabetes mellitus. * Hypertension. Controlled * Chronic A. fib * CAD * Diastolic dysfunction Current Visit: Yes (2) Hyperglycemia Status: Acute Current Visit: Yes (3) Chronic a-fib Status: Chronic Current Visit: Yes (4) Diabetes mellitus Status: Chronic Current Visit: Yes Qualifiers: Diabetes mellitus type: type 2 Diabetes mellitus complication status: with hyperglycemia Diabetes mellitus prison insulin use: with finger waver use Qualified Code(s): E11.65 - Type 2 diabetes mellitus with hyperglycemia; Z79.4 - four h agent (current) use of insulin; Z79.4 - four h agent (current) use of insulin ; Z79.4 - four h agent (current) use of insulin; Z79.4 - longterm (current) use of insulin (5) Essential hypertension Status: Chronic Current Visit: Yes (6) Ischemic cardiomyopathy Status: Chronic Current Visit: Yes (7) History of coronary artery bypass graft Status: Chronic Current Visit: No Specialty Discharge - Follow Up or Referrals Follow up with: Jose Berkowitz MD [Physician] - 2 Weeks (EKG, BMP)
--- NOTE | 2017-08-05 16:54 | Sleep Medicine Progress Note ---
Assessment and Plan (1) Unspecified sleep apnea Status: Acute Assessment and plan: Patient does have evidence of severe obstructive sleep apnea based on HST evaluation. Auto titration CPAP will be ordered but he will need formal titration in the sleep center given sleep apnea severity. Current Visit: Yes (2) Essential hypertension Status: Chronic Current Visit: Yes (3) Diabetes mellitus Status: Chronic Current Visit: Yes Qualifiers: Diabetes mellitus type: type 2 Diabetes mellitus complication status: with hyperglycemia Diabetes mellitus assistant terminal manager insulin use: with assistant terminal manager use Qualified Code(s): E11.65 - Type 2 diabetes mellitus with hyperglycemia; Z79.4 - intermediate designer (current) use of insulin; Z79.4 - USP (current) use of insulin ; Z79.4 - USP (current) use of insulin; Z79.4 - USP (current) use of insulin (4) Congestive heart failure Status: Chronic Current Visit: No Qualifiers: Congestive heart failure type: combined Sleep Medicine Subjective Interval history: Patient did have severe obstructive sleep apnea on home sleep testing last night. His respiratory event index was about 46, consistent with severe CAMILLA. I reviewed these findings with he and his to their understanding. If he is here tonight, we will try him on auto titration CPAP. He will need formal titration in the sleep center after discharge. Exam (Progress Note) - Constitutional Vitals: Period Temp Pulse Resp BP Sys/Fernando Pulse Ox Last 24 Hr 96.8 F-98.2 F 60-67 15-20 99-141/57-83 95-99 Results - Labs CBC & BMP: 08/05/17 04:56 08/05/17 04:56 Lab Results: I have reviewed the past 24 hour labs Specialty Discharge - Follow Up or Referrals Follow up with: Jose Berkowitz MD [Physician] - 2 Weeks (EKG, BMP)
[2017-08-05] MEDS: ATORVASTATIN 40 MG TABLET PO SCH (21:40)
[2017-08-05] MEDS: INSULIN GLARGINE 100 UNIT/ML SUBCUT SCH (21:41)
[2017-08-05] MEDS: GABAPENTIN 300 MG CAPSULE PO SCH (21:41)
--- NOTE | 2017-08-05 22:32 | Internal Med Progress Note ---
Assessment and Plan (1) Paroxysmal a-fib Status: Chronic Current Visit: Yes (2) Pacemaker Status: Chronic Current Visit: Yes (3) Hyperglycemia Status: Acute Current Visit: Yes (4) Congestive heart failure Status: Chronic Current Visit: No Qualifiers: Congestive heart failure type: combined (5) Coronary artery disease Status: Chronic Current Visit: No Qualifiers: Coronary Disease-Associated Artery/Lesion type: [place] artery [place] vs. transplanted heart: [place] heart Associated angina: without angina Qualified Code(s): I25.10 - Atherosclerotic heart disease of [place] coronary artery without angina pectoris (6) Diabetes mellitus Status: Chronic Current Visit: Yes Qualifiers: Diabetes mellitus type: type 2 Diabetes mellitus complication status: with hyperglycemia Diabetes mellitus shelter insulin use: with termite control representative use Qualified Code(s): E11.65 - Type 2 diabetes mellitus with hyperglycemia; Z79.4 - terminal system operator (current) use of insulin; Z79.4 - terminal system operator (current) use of insulin ; Z79.4 - terminal system operator (current) use of insulin; Z79.4 - terminal system operator (current) use of insulin (7) Essential hypertension Status: Chronic Current Visit: Yes (8) Unspecified sleep apnea Status: Chronic Current Visit: Yes Internal Medicine - PN: Subj Interval history: Mr. Heller is a 71 year old male with history of DM, HTN, CAD with stents, CABG , CHF, cardiomyopathy with LVEF of 30%, dyslipidemia, chronic atrial fibrillation, pacemaker placement, old strokes, who presented to clinic yesterday with worsening tremors and confusion. He was found to have significantly elevated glucose of >[address] brain indicated multiple small strokes. MRI brain ordered for next week from clinic to further delineate area of abnormality on CT. August 02: Feeling much better today with greatly improved glucose values. No appreciable tremors. Will reschedule MRI brain for Friday or Friday since he is here in hospital. August 03: He will have MRI tomorrow. He reports shortness of breath crossing the room, and consulted Dr. Alberto to further evaluate. He has not followed up with cardiology in years. Also, consulted Dr. Mckeon for obstructive sleep apnea. August 04: He is having overnight hospital sleep eval. MRI brain in the morning. August 05: He was found to have severe sleep apnea and will be tested with AutoPAP titration tonight. Also, he will have a MRA brain to further evaluate an abnormality near third ventricle: a cyst vs aneurysm. Exam (Progress Note) - Constitutional Vitals: Period Temp Pulse Resp BP Sys/Fernando Pulse Ox Last 24 Hr 96.8 F-97.9 F 60-67 15-20 99-137/57-83 95-99 Exam: General appearance: no acute distress - Respiratory Respiratory exam: Present: clear to auscultation bilaterally - Cardiovascular Cardiovascular exam: Present: regular rate and rhythm - GI/Abdominal GI/Abdominal exam: Present: soft. Absent: tenderness - Extremities Exam Extremities exam: no edema to lower extremities - Neurological Exam Neurological exam: Present: alert - Psychiatric Psychiatric exam: Present: normal mood - Skin Skin exam: Present: warm, dry Results - Labs CBC & BMP: 08/05/17 04:56 08/05/17 04:56 Quality Measures - VTE Contraindication to Pharmacological VTE Prophylaxis: High Risk of Bleeding Specialty Discharge - Follow Up or Referrals Follow up with: Jose Berkowitz MD [Physician] - 2 Weeks (EKG, BMP)
[2017-08-06] MEDS: INSULIN REGULAR 100 UNIT/ML SUBCUT SCH ×4 (02:46→17:46)
[2017-08-06 06:10] LABS: Basophils # 0.1 10*3/uL (0.0-0.2); Basophils % 0.9 % (0.0-0.8); Eosinophils # 0.2 10*3/uL (0.0-0.87); Hematocrit 33.7 VOL% (42.0-52.0); Hemoglobin 11.7 GM/DL (14.0-18.0); Immature Granulocytes % 0.3 %; Immature Granulocytes Absolute 0.02 #; Lymphocytes # 1.8 10*3/uL (1.4-4.0); Lymphocytes % 31.2 % (21.2-54.2); Mean Corpuscular HGB Conc 34.7 GM/DL (32-36); Mean Corpuscular Hemoglobin 31 PG (27-34); Mean Corpuscular Volume 88.2 FL (87-102); Mean Platelet Volume 11.6 FL (9.6-12.0); Monocytes # 0.5 10*3/uL (0.11-0.8); Monocytes % 8.5 % (1.7-12.7); Neutrophils # 3.2 10*3/uL (1.4-7.4); Neutrophils % 55.1 % (38.7-73.9); Platelet Count 130 T/CUMM (130-400); Red Blood Count 3.82 MC/CUMM (3.8-5.5); Red Cell Distribution Width 13.2 % (9.3-17.3); White Blood Count 5.8 T/CUMM (4-12)
[2017-08-06 06:36] LABS: Calcium 8.1 MG/DL (8.5-10.1); Magnesium 2.3 MG/DL (1.8-2.4); Osmolality,Calculated 288.3 MOS/KG (273-304); Potassium 3.5 MMOL/L (3.5-5.1)
[2017-08-06] MEDS: PANTOPRAZOLE 40 MG TABLET PO SCH (08:22)
[2017-08-06] MEDS: DOCUSATE SODIUM 100 MG CAPSULE PO SCH ×2 (08:22→22:33)
[2017-08-06] MEDS: SERTRALINE 25 MG TABLET PO SCH (08:22)
[2017-08-06] MEDS: FUROSEMIDE 40 MG TABLET PO SCH (08:22)
[2017-08-06] MEDS: CARVEDILOL 25 MG TABLET PO SCH ×2 (08:22→22:34)
[2017-08-06] MEDS: APIXABAN 5 MG TABLET PO SCH ×2 (08:22→22:34)
[2017-08-06] MEDS: GLIMEPIRIDE 4 MG TABLET PO SCH ×2 (08:22→17:46)
[2017-08-06] MEDS: ISOSORBIDE MONONITRATE 60 MG TABLET PO SCH (08:22)
[2017-08-06] MEDS: POTASSIUM CHLORIDE 20 MEQ TABLET PO PRN ×2 (08:22→10:00)
[2017-08-06] MEDS: ASPIRIN EC 81 MG TABLET PO SCH (08:22)
[2017-08-06] MEDS ORDERED: INSULIN GLARGINE 100 UNIT/ML SUBCUT SCH ×2 (09:00→16:33)
[2017-08-06] MEDS: AMOXICILLIN/CLAV 500 MG TABLET PO SCH ×2 (10:00→22:34)
--- NOTE | 2017-08-06 13:44 | Magnetic Resonance Report ---
Exam: MR angio head wo con (COW) Date: 08/06/2017 4:00 AM Comparison: MRI brain 08/04/2017 Indication: Abnormal CT, abnormal MRI Technique:[Utilizing 3-D [id number] imaging and MR angiogram of the head obtained without contrast. Thin section T2 coronal and axial scans were obtained with 3-D volume rendered scans. Scans were obtained on a 1.5 Sara magnet.] Degree of stenosis based on NASCET criteria. Findings: Tortuosity of the arteries with no definite aneurysm identified. The right vertebral artery is significantly smaller in size with occlusion. Also there is high-grade stenosis or focal occlusion of the mid right posterior cerebral artery. Less critical stenoses are identified. Suboptimal demonstration of the right posterior communicating artery. Impression: Tortuosity of the arteries with no definite aneurysm. Therefore the finding at the level of the third ventricle probably represents a small cyst. 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 Less critical stenoses are demonstrated. PROCEDURE INTERPRETED AT [facility] DEPARTMENT OF RADIOLOGY Final Report Signed by: Dr. Brigette Ward
--- NOTE | 2017-08-06 14:46 | Nephrology Progress Note ---
Nephrology - PN: Subj Interval history: No S OB at rest. CPAP started last night. Exam (PN)-Nephrology - Vital Signs Vital signs: Period Temp Pulse Resp BP Sys/Fernando Pulse Ox Last 24 Hr 96.8 F-97.4 F 60-73 18-20 107-156/59-98 93-99 Exam: ENT: Normal Cardiovascular: Regular rate and rhythm. No murmur rub or gallop Lungs: Clear Extremities: No edema - Lab 08/06/17 05:10 08/06/17 05:10 Most recent lab results Calcium 8.1 MG/DL (8.5-10.1) L 08/06/17 05:10 Magnesium 2.3 MG/DL (1.8-2.4) 08/06/17 05:10 Assessment and Plan (1) Chronic kidney disease, stage III (moderate) Status: Acute Assessment and plan: 71-year-old man with: * CRF 3. Baseline creatinine 2. Current volume status normal. * Diabetes mellitus. * Hypertension. Controlled * Chronic A. fib * CAD * Diastolic dysfunction * Sleep apnea Current Visit: Yes (2) Hyperglycemia Status: Acute Current Visit: Yes (3) Chronic a-fib Status: Chronic Current Visit: Yes (4) Diabetes mellitus Status: Chronic Current Visit: Yes Qualifiers: Diabetes mellitus type: type 2 Diabetes mellitus complication status: with hyperglycemia Diabetes mellitus penitentiary insulin use: with buttermaker helper use Qualified Code(s): E11.65 - Type 2 diabetes mellitus with hyperglycemia; Z79.4 - tank terminal gauger (current) use of insulin; Z79.4 - MCFP (current) use of insulin ; Z79.4 - tank terminal gauger (current) use of insulin; Z79.4 - tank terminal gauger (current) use of insulin (5) Essential hypertension Status: Chronic Current Visit: Yes (6) Ischemic cardiomyopathy Status: Chronic Current Visit: Yes (7) History of coronary artery bypass graft Status: Chronic Current Visit: No Specialty Discharge - Follow Up or Referrals Follow up with: Jose Berkowitz MD [Physician] - ([facility] WITH EKG, BMP)
[2017-08-06] MEDS: PIOGLITAZONE 15 MG TABLET PO SCH (17:46)
--- NOTE | 2017-08-06 19:35 | Sleep Medicine Progress Note ---
Assessment and Plan (1) Unspecified sleep apnea Status: Chronic Assessment and plan: Set up outpatient titration sleep study for CPAP for obstructive sleep apnea after discharge. Current Visit: Yes (2) Essential hypertension Status: Chronic Current Visit: Yes (3) Diabetes mellitus Status: Chronic Current Visit: Yes Qualifiers: Diabetes mellitus type: type 2 Diabetes mellitus complication status: with hyperglycemia Diabetes mellitus superintendent terminal insulin use: with superintendent terminal use Qualified Code(s): E11.65 - Type 2 diabetes mellitus with hyperglycemia; Z79.4 - halfway (current) use of insulin; Z79.4 - halfway (current) use of insulin ; Z79.4 - halfway (current) use of insulin; Z79.4 - halfway (current) use of insulin (4) Congestive heart failure Status: Chronic Current Visit: No Qualifiers: Congestive heart failure type: combined Sleep Medicine Subjective Interval history: Patient did sleep with CPAP therapy last night in an auto titration mode. He states that he tolerated it well and actually spent over 11 hours on it. His average device pressure was about 5 cm but his average AHI was over 43. I doubt this is reliable given that he had a large mask leak with his CPAP of over 8 hours. His CPAP machine is already been picked up today with anticipation that he was being discharged. I see that he is not being discharged. We need to get him in the sleep lab for formal titration of CPAP given the severity of his sleep apnea and we will set this up as an outpatient after discharge. Exam (Progress Note) - Constitutional Vitals: Period Temp Pulse Resp BP Sys/Fernando Pulse Ox Last 24 Hr 96.0 F-97.4 F 60-75 18-20 107-156/59-98 93-100 Exam: Patient alert and responsive in no distress. Results - Labs CBC & BMP: 08/06/17 05:10 08/06/17 05:10 Lab Results: I have reviewed the past 24 hour labs Specialty Discharge - Follow Up or Referrals Follow up with: Jose Berkowitz MD [Physician] - ([facility] 3 MONTHS WITH EKG, BMP)
[2017-08-06] MEDS: GABAPENTIN 300 MG CAPSULE PO SCH (22:33)
[2017-08-06] MEDS: ATORVASTATIN 40 MG TABLET PO SCH (22:34)
--- NOTE | 2017-08-06 22:36 | Internal Med Progress Note ---
Assessment and Plan (1) Paroxysmal a-fib Status: Chronic Current Visit: Yes (2) Pacemaker Status: Chronic Current Visit: Yes (3) Hyperglycemia Status: Acute Current Visit: Yes (4) Congestive heart failure Status: Chronic Current Visit: No Qualifiers: Congestive heart failure type: combined (5) Coronary artery disease Status: Chronic Current Visit: No Qualifiers: Coronary Disease-Associated Artery/Lesion type: [place] artery [place] vs. transplanted heart: [place] heart Associated angina: without angina Qualified Code(s): I25.10 - Atherosclerotic heart disease of [place] coronary artery without angina pectoris (6) Diabetes mellitus Status: Chronic Current Visit: Yes Qualifiers: Diabetes mellitus type: type 2 Diabetes mellitus complication status: with hyperglycemia Diabetes mellitus prison insulin use: with terminal worker use Qualified Code(s): E11.65 - Type 2 diabetes mellitus with hyperglycemia; Z79.4 - ad terminal makeup operator (current) use of insulin; Z79.4 - ad terminal makeup operator (current) use of insulin ; Z79.4 - ad terminal makeup operator (current) use of insulin; Z79.4 - ad terminal makeup operator (current) use of insulin (7) Essential hypertension Status: Chronic Current Visit: Yes (8) Unspecified sleep apnea Status: Chronic Current Visit: Yes Internal Medicine - PN: Subj Interval history: Mr. Heller is a 71 year old male with history of DM, HTN, CAD with stents, CABG , CHF, cardiomyopathy with LVEF of 30%, dyslipidemia, chronic atrial fibrillation, pacemaker placement, old strokes, who presented to clinic yesterday with worsening tremors and confusion. He was found to have significantly elevated glucose of >[address] brain indicated multiple small strokes. MRI brain ordered for next week from clinic to further delineate area of abnormality on CT. August 02: Feeling much better today with greatly improved glucose values. No appreciable tremors. Will reschedule MRI brain for Friday or Friday since he is here in hospital. August 03: He will have MRI tomorrow. He reports shortness of breath crossing the room, and consulted Dr. Alberto to further evaluate. He has not followed up with cardiology in years. Also, consulted Dr. Mckeon for obstructive sleep apnea. August 04: He is having overnight hospital sleep eval. MRI brain in the morning. August 05: He was found to have severe sleep apnea and will be tested with AutoPAP titration tonight. Also, he will have a MRA brain to further evaluate an abnormality near third ventricle: a cyst vs aneurysm. 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 However, he has stenotic arteries right branches of [place] Pat. With history small strokes, will send him for further evaluation to vascular brain surgeon in [place] for opinion of whether he could be considered for any procedure to help open blood flow. Will discharge in the morning. He will need follow up with Dr. Mckeon for overnight sleep study for severe obstructive sleep apnea. ECHO showed moderate pulmonary hypertension, grade III diastolic dysfunction and with LVEF 40%. Exam (Progress Note) - Constitutional Vitals: Period Temp Pulse Resp BP Sys/Fernando Pulse Ox Last 24 Hr 96.0 F-97.4 F 62-75 18-20 107-156/59-98 96-100 Exam: General appearance: no acute distress - Respiratory Respiratory exam: Present: clear to auscultation bilaterally - Cardiovascular Cardiovascular exam: Present: regular rate and rhythm - GI/Abdominal GI/Abdominal exam: Present: soft. Absent: tenderness - Extremities Exam Extremities exam: no edema to lower extremities - Neurological Exam Neurological exam: Present: alert - Psychiatric Psychiatric exam: Present: normal mood - Skin Skin exam: Present: warm, dry Results - Labs CBC & BMP: 08/06/17 05:10 08/06/17 05:10 Quality Measures - VTE Contraindication to Pharmacological VTE Prophylaxis: High Risk of Bleeding Specialty Discharge - Follow Up or Referrals Follow up with: Jose Berkowitz MD [Physician] - ([facility] MONTHS WITH EKG, BMP)
--- NOTE | 2017-08-07 01:19 | Discharge Summary ---
Hospital Course - Hospital Course Hospital Course: Mr. Heller is a 71 year old male with history of DM, HTN, CAD with stents, CABG , CHF, cardiomyopathy with LVEF of 30%, dyslipidemia, chronic atrial fibrillation, pacemaker placement, old strokes, who presented to clinic yesterday with worsening tremors and confusion. He was found to have significantly elevated glucose of >[address] brain indicated multiple small strokes. MRI brain ordered for next week from clinic to further delineate area of abnormality on CT. He was found to have, with overnight evaluation, severe sleep apnea and will be tested with AutoPAP titration tonight. 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 However, he has stenotic arteries right branches of [place] Pat. With history small strokes, will send him for further evaluation to vascular brain surgeon in [place] for opinion of whether he could be considered for any procedure to help open blood flow. Will discharge in the morning. He will need follow up with Dr. Mckeon for overnight sleep study for severe obstructive sleep apnea. ECHO showed moderate pulmonary hypertension, grade III diastolic dysfunction and with LVEF 40%. Also, he has had hyperglycemia difficult to control while here in hospital. Adjusted medications and insulin while here. Will continue adjustments outpatient. Diagnosis - Discharge Diagnosis (1) Paroxysmal a-fib Status: Chronic (2) Pacemaker Status: Chronic (3) Hyperglycemia Status: Acute (4) Congestive heart failure Status: Chronic (5) Coronary artery disease Status: Chronic (6) Diabetes mellitus Status: Chronic (7) Essential hypertension Status: Chronic (8) Unspecified sleep apnea Status: Chronic Specialty Discharge - Follow Up or Referrals Follow up with: oJse Berkowitz MD [Physician] - ([facility] 3 MONTHS WITH EKG, BMP) Discharge Plan - Discharge Data Disposition: Home Health Service Condition at Discharge: Stable Discharge Diet: diabetic diet, low fat, low cholesterol Activity: increase activity as tolerated - Discharge Medications New Amoxicillin/Clav Tab [Augmentin Tab] 500 mg PO BID #60 tablet cloNIDine TAB [Catapres Tab] 0.2 mg PO BID #60 tablet Docusate Sodium Cap [Colace Cap] 100 mg PO BID capsule Furosemide Tab [Lasix Tab] 40 mg PO DAILY #30 tablet Glimepiride [Amaryl] 4 mg PO BID W/MEALS #60 tablet Insulin Detemir [Levemir FlexPen] 15 unit SUBCUT DAILY W/SUPPER #3 ml Insulin Lispro [HumaLOG] 10 unit SUBCUT TID W/MEALS #3 unit Carvedilol [Coreg] 25 mg PO BID #60 tablet Pioglitazone [Actos] 15 mg PO DAILY #30 tablet Continue Gabapentin Cap/Tab [Neurontin Cap/Tab] 300 mg PO AC SUPPER Aspirin [Ecotrin] 81 mg PO DAILY Lovastatin [Mevacor] 40 mg PO DAILY W/SUPPER tablet Ferrous Gluconate 240 mg PO DAILY Apixaban [Eliquis] 2.5 mg PO BID Isosorbide Mononitrate [Imdur] 60 mg PO DAILY Sertraline [Zoloft] 25 mg PO DAILY Changed Insulin Detemir [Levemir FlexPen] 35 unit SUBCUT AC BREAKFAST #5 Potassium Chloride 20 meq PO DAILY #30 Discontinued Glimepiride [Amaryl] 4 mg PO DAILY W/BREAKFAST tablet Furosemide Tab [Lasix Tab] 20 mg PO DAILY cloNIDine TAB [Catapres Tab] 0.2 mg PO BEDTIME Metoprolol Tartrate Tab [Lopressor Tab] 100 mg PO BID W/MEALS - Follow Up or Referral Follow Up: Jose Berkowitz MD [Physician] - ([facility] 3 MONTHS WITH EKG, BMP) Randi Mckeon MD [Physician] - Ryan Finn MD [Physician] - Shane Turpin MD [Physician] - Jarrett Husain [REFERRING DOCTOR/PRACTITIONER] - Sarah Woods DO [Primary Care Provider] - - Forms/Instructions Additional Discharge Instructions: Follow up with Dr. Woody Woods within 1-2 weeks in clinic regarding Diabetes and HTN; bring logs to appointment. Follow up with Dr. Linda willis for outpatient sleep study (severe obstructive sleep apnea). Follow up with Dr. Berkowitz per appointment set (cardiomyopathy). Referral to Dr. Husain in [place] to further evaluate findings MRA brain regarding stenotic arteries whenever appointment is available. Follow up with Dr. Finn in clinic within 2-3 months. Follow up with Dr. Turpin in clinic within 6 months (history of old strokes). Exam - Constitutional Vitals: Period Temp Pulse Resp BP Sys/Fernando Pulse Ox Last 24 Hr 96.0 F-98.1 F 62-80 18-20 119-161/61-98 96-100 Exam: General appearance: no acute distress - Respiratory Respiratory exam: Present: clear to auscultation bilaterally - Cardiovascular Cardiovascular exam: Present: regular rate and rhythm - GI/Abdominal GI/Abdominal exam: Present: soft. Absent: tenderness - Extremities Exam Extremities exam: no edema to lower extremities - Neurological Exam Neurological exam: Present: alert - Psychiatric Psychiatric exam: Present: normal mood - Skin Skin exam: Present: warm, dry Discharge Results Procedures and tests throughout hospitalization: Pending Orders 08/07/17 04:00 BMP w/ Mg [Basic Metabolic Panel w/Mg] IN AM CBC [Comp Blood Count Auto Diff] IN AM 08/08/17 04:00 BMP w/ Mg [Basic Metabolic Panel w/Mg] IN AM CBC [Comp Blood Count Auto Diff] IN AM Labs on day of discharge: Labs from last 24 hours 08/06/17 08/06/17 08/06/17 17:40 12:55 05:10 WBC RBC Hgb Hct MCV MCH MCHC RDW Plt Count MPV Neut % (Auto) Lymph % (Auto) [place] % (Auto) Eos % (Auto) Baso % (Auto) Neut # (Auto) Lymph # (Auto) [place] # (Auto) Eos # (Auto) Baso # (Auto) Immature Gran % Nucleated RBC % Immature Gran # Nucleated RBCs # Immature Plt Fraction Sodium 141 Potassium 3.5 Chloride 107 Carbon Dioxide 24 Anion Gap 13.5 BUN 40 H Creatinine 2.30 H GFR Calculation 30 BUN/Creatinine Ratio 17.00 Glucose 61 L POC Glucose 301 H 245 H Calculated Osmolality 288.3 Calcium 8.1 L Magnesium 2.3 08/06/17 08/06/17 05:10 05:08 WBC 5.8 D RBC 3.82 Hgb 11.7 L Hct 33.7 L MCV 88.2 MCH 31 MCHC 34.7 RDW 13.2 Plt Count 130 MPV 11.6 Neut % (Auto) 55.1 Lymph % (Auto) 31.2 [place] % (Auto) 8.5 Eos % (Auto) 4.0 Baso % (Auto) 0.9 H Neut # (Auto) 3.2 Lymph # (Auto) 1.8 [place] # (Auto) 0.5 Eos # (Auto) 0.2 Baso # (Auto) 0.1 Immature Gran % 0.3 Nucleated RBC % 0.0 Immature Gran # 0.02 Nucleated RBCs # 0.00 Immature Plt Fraction 0.0 Sodium Potassium Chloride Carbon Dioxide Anion Gap BUN Creatinine GFR Calculation BUN/Creatinine Ratio Glucose POC Glucose 74 Calculated Osmolality Calcium Magnesium DS: Provider Date of admission: 07/31/17 21:34 Primary care physician: Sarah Woods DO Attending physician on admission: Sarah Woods DO Consults: 07/31/17 21:34 Consult to Case Mgmt/Social Srvs [CONS] Routine Reason for Case Mgmt/Social Srvs: Discharge Planning 07/31/17 21:37 Consult to Physician [CONS] Routine Comment: Fecal seizure disorder, CVA, ? Cerebral aneurysm Consulting Provider: Shane Turpin Consult to Specialist Group: Neurology Person Notified: Leyla Date Notified: 08/01/17 Time Notified: 09:05 08/01/17 09:31 Consult to [facility], Educator [CONS] Routine Reason for Cnc Mill And Lathe Operator: Evaluate and Recommend 08/01/17 15:29 Consult to Case Mgmt/Social Srvs [CONS] Routine Reason for Case Mgmt/Social Srvs: Home Health 08/02/17 11:39 Consult to Dietitian [CONS] Routine Reason for Dietitian: Diet Instruction Diet Recommendations Consult to Physical Therapy [CONS] Routine Reason for Physical Therapy: Evaluate and Treat 08/03/17 14:21 Consult to Physician [CONS] Routine Comment: exertional SOB; hx CABG Consulting Provider: Goyo Castillo Person Notified: DR. CASTILLO Date Notified: 08/03/17 Time Notified: 14:30 08/03/17 14:22 Consult to Physician [CONS] Routine Comment: suspicion sleep apnea Consulting Provider: Randi Mckeon 08/03/17 23:25 Consult to Physician [CONS] Routine Comment: chronic renal insufficiency Consulting Provider: Ryan Finn Consult to Specialist Group: Nephrology Person Notified: Jena Date Notified: 08/04/17 Time Notified: 08:50 Discharging clinician: Sarah Woods DO Expected date of discharge: 08/07/17
[2017-08-07] MEDS: INSULIN REGULAR 100 UNIT/ML SUBCUT SCH ×2 (01:20→06:00)
[2017-08-07 06:13] LABS: Basophils % 0.5 % (0.0-0.8); Eosinophils # 0.2 10*3/uL (0.0-0.87); Eosinophils % 3.7 % (0.00-10.9); Hemoglobin 11.3 GM/DL (14.0-18.0); Immature Granulocytes % 0.2 %; Immature Granulocytes Absolute 0.01 #; Lymphocytes # 1.7 10*3/uL (1.4-4.0); Mean Corpuscular HGB Conc 34.2 GM/DL (32-36); Mean Corpuscular Hemoglobin 30 PG (27-34); Mean Corpuscular Volume 88.7 FL (87-102); Mean Platelet Volume 11.3 FL (9.6-12.0); Monocytes # 0.6 10*3/uL (0.11-0.8); Monocytes % 8.9 % (1.7-12.7); Neutrophils # 3.8 10*3/uL (1.4-7.4); Neutrophils % 59.7 % (38.7-73.9); Platelet Count 142 T/CUMM (130-400); Red Blood Count 3.72 MC/CUMM (3.8-5.5); Red Cell Distribution Width 13.1 % (9.3-17.3); White Blood Count 6.3 T/CUMM (4-12)
[2017-08-07 06:39] LABS: Calcium 8.4 MG/DL (8.5-10.1); Magnesium 2.1 MG/DL (1.8-2.4); Osmolality,Calculated 289.1 MOS/KG (273-304); Potassium 3.9 MMOL/L (3.5-5.1)
[2017-08-07 07:45] VITALS: BP 148/95
[2017-08-07] MEDS ORDERED: INSULIN LISPRO 100 UNIT/ML SUBCUT SCH (08:00)
[2017-08-07] MEDS: ISOSORBIDE MONONITRATE 60 MG TABLET PO SCH (08:38)
[2017-08-07] MEDS: AMOXICILLIN/CLAV 500 MG TABLET PO SCH (08:38)
[2017-08-07] MEDS: DOCUSATE SODIUM 100 MG CAPSULE PO SCH (08:38)
[2017-08-07] MEDS: CARVEDILOL 25 MG TABLET PO SCH (08:38)
[2017-08-07] MEDS: GLIMEPIRIDE 4 MG TABLET PO SCH (08:38)
[2017-08-07] MEDS: SERTRALINE 25 MG TABLET PO SCH (08:38)
[2017-08-07] MEDS: FUROSEMIDE 40 MG TABLET PO SCH (08:38)
[2017-08-07] MEDS: PIOGLITAZONE 15 MG TABLET PO SCH (08:38)
[2017-08-07] MEDS: APIXABAN 5 MG TABLET PO SCH (08:38)
[2017-08-07] MEDS: INSULIN GLARGINE 100 UNIT/ML SUBCUT SCH ×2 (08:39→09:19)
[2017-08-07] MEDS: ASPIRIN EC 81 MG TABLET PO SCH (08:39)
== END 2017-08-07 11:57 | disposition home health service (06) | DRG 638 ==
LOC: N.ED 17:26 → N.EDINP 21:34 → N.TELES 22:07
PROVIDERS: ADMIT Internal Medicine; ATTEND Internal Medicine

== ENCOUNTER 2022-07-24 12:17 | Inpatient (IN) ==
[2022-07-24] MEDS ORDERED: ACETAMINOPHEN 325 MG TABLET PO PRN (12:28)
[2022-07-24] MEDS ORDERED: traMADol 50 MG TABLET PO PRN (12:30)
[2022-07-24] MEDS ORDERED: MAGNESIUM HYDROXIDE SUSP 30 ML UDCUP PO PRN (12:30)
[2022-07-24] MEDS ORDERED: ALBUTEROL/IPRATROPIUM 3 ML NEB RESP TX PRN (12:36)
[2022-07-24] MEDS ORDERED: SODIUM CHLORIDE 0.9% 1,000 ML IV SCH (14:00)
[2022-07-24] MEDS ORDERED: ENOXAPARIN 30 MG/0.3 ML SYRINGE SUBCUT SCH (14:00)
[2022-07-24 14:36] LABS: Basophils % 0.2 % (0.0-0.8); Eosinophils # 0.1 10*3/uL (0.0-0.87); Eosinophils % 1.8 % (0.00-10.9); Hematocrit 27.1 VOL% (42.0-52.0); Hemoglobin 8.4 GM/DL (14.0-18.0); Immature Granulocytes % 0.2 %; Immature Granulocytes Absolute 0.01 #; Lymphocytes # 0.8 10*3/uL (1.4-4.0); Lymphocytes % 12.4 % (21.2-54.2); Mean Corpuscular Volume 97.8 FL (87-102); Monocytes # 0.4 10*3/uL (0.11-0.8); Monocytes % 6.4 % (1.7-12.7); Platelet Count 153 T/CUMM (130-400); Red Blood Count 2.77 MC/CUMM (3.8-5.5); White Blood Count 6.1 T/CUMM (4-12)
[2022-07-24 14:48] LABS: INR 1.2; PT Patient Result 12.6 SECS (10.1-12.1)
[2022-07-24 15:06] LABS: Phosphorous 5.2 MG/DL (2.5-4.9); Thyroid Stimulating Hormone 2.04 uIU/ml (0.358-3.74); Uric Acid 12.7 MG/DL (3.5-7.2)
[2022-07-24 15:08] LABS: Albumin 2.9 G/DL (3.4-5.0); Bilirubin,Total 0.7 MG/DL (0.20-1.00); Calcium 8.9 MG/DL (8.5-10.1); Osmolality,Calculated 308.5 MOS/KG (273-304); Potassium 5.5 MMOL/L (3.5-5.1); Total Protein 6.7 G/DL (6.4-8.2)
[2022-07-24] MEDS: INSULIN REGULAR 100 UNIT/ML SUBCUT SCH ×2 (16:43→20:49)
[2022-07-24] MEDS ORDERED: SODIUM POLYSTYRENE SULFATE 15 GM/60 ML BOTTLE PO STA (17:14)
[2022-07-24] MEDS: GLIMEPIRIDE 4 MG TABLET PO SCH (17:46)
[2022-07-24] MEDS: MEMANTINE 10 MG TABLET PO SCH (20:49)
[2022-07-24] MEDS: FAMOTIDINE 20 MG TABLET PO SCH (20:49)
[2022-07-24] MEDS: DOCUSATE SODIUM 100 MG CAPSULE PO SCH (20:49)
[2022-07-24] MEDS: QUEtiapine 25 MG TABLET PO SCH (20:52)
[2022-07-24] MEDS: SODIUM CHLORIDE 0.9% 1,000 ML IV SCH (20:52)
[2022-07-24 21:00] LABS: Hyaline Casts,Urine 5 /LPF (0-3); Mucus,Urine Occasional /LPF (Occasional); RBC,Urine 2 /HPF (0-4); Squamous Epithelial Cell,Urine Occasional /HPF (0-10)
[2022-07-24] MEDS ORDERED: MEMANTINE 10 MG TABLET PO SCH (21:00)
[2022-07-24] MEDS ORDERED: APIXABAN 2.5 MG TABLET PO SCH (21:00)
[2022-07-24 21:01] LABS: Bilirubin,Urine Negative (Negative); Blood, Urine Negative (Negative); Glucose,Urine (UA) Negative (Negative); Ketones,Urine Negative (Negative); Nitrite,Urine Negative (Negative); Protein,Urine Negative (Negative); Urine Appearance Clear (Clear); Urine Color Yellow (Yellow); Urine Urobilinogen 0.2 eU/dL (<2.0)
[2022-07-24] MEDS: ONDANSETRON 4 MG/2 ML VIAL IV PRN (21:02)
[2022-07-24 21:27] LABS: Protein/Creatinine Ratio,Urine 0.1 RATIO
[2022-07-24] MEDS: INSULIN GLARGINE 100 UNIT/ML SUBCUT SCH (22:24)
[2022-07-25 05:13] LABS: Basophils % 0.2 % (0.0-0.8); Eosinophils # 0.2 10*3/uL (0.0-0.87); Hematocrit 24.7 VOL% (42.0-52.0); Hemoglobin 7.9 GM/DL (14.0-18.0); Immature Granulocytes % 0.2 %; Immature Granulocytes Absolute 0.01 #; Lymphocytes % 17.9 % (21.2-54.2); Mean Corpuscular Volume 95.7 FL (87-102); Mean Platelet Volume 12.1 FL (9.6-12.0); Monocytes # 0.5 10*3/uL (0.11-0.8); Monocytes % 9.8 % (1.7-12.7); Neutrophils % 68.9 % (38.7-73.9); Platelet Count 137 T/CUMM (130-400); Red Blood Count 2.58 MC/CUMM (3.8-5.5); Red Cell Distribution Width 14.8 % (9.3-17.3); White Blood Count 5.3 T/CUMM (4-12)
[2022-07-25 05:34] LABS: Calcium 8.7 MG/DL (8.5-10.1); Osmolality,Calculated 311.2 MOS/KG (273-304); Potassium 5.2 MMOL/L (3.5-5.1)
[2022-07-25 05:36] LABS: Risk Ratio 7.42; VLDL Cholesterol 38.2 MG/DL
[2022-07-25] MEDS: INSULIN REGULAR 100 UNIT/ML SUBCUT SCH ×4 (07:19→21:50)
[2022-07-25] MEDS: SODIUM CHLORIDE 0.9% 1,000 ML IV SCH ×2 (07:34→16:01)
[2022-07-25] MEDS ORDERED: ASPIRIN EC 81 MG TABLET PO SCH (09:00)
[2022-07-25] MEDS: ONDANSETRON 4 MG/2 ML VIAL IV PRN (09:09)
[2022-07-25] MEDS: FAMOTIDINE 20 MG TABLET PO SCH (10:02)
[2022-07-25] MEDS: GLIMEPIRIDE 4 MG TABLET PO SCH (10:02)
[2022-07-25] MEDS: QUEtiapine 25 MG TABLET PO SCH (10:02)
[2022-07-25] MEDS: MEMANTINE 10 MG TABLET PO SCH (10:02)
[2022-07-25] MEDS: DOCUSATE SODIUM 100 MG CAPSULE PO SCH (10:02)
[2022-07-25] MEDS: ALBUTEROL/IPRATROPIUM 3 ML NEB RESP TX SCH ×2 (14:11→19:50)
[2022-07-25] MEDS: ENOXAPARIN 30 MG/0.3 ML SYRINGE SUBCUT SCH (15:59)
[2022-07-25] MEDS: PROMETHAZINE 25 MG/1 ML VIAL IM PRN (16:09)
[2022-07-25] MEDS ORDERED: SIMVASTATIN 20 MG TABLET PO SCH (17:00)
[2022-07-25] MEDS: METOCLOPRAMIDE 10 MG/2 ML VIAL IV SCH (17:31)
[2022-07-25] MEDS: INSULIN GLARGINE 100 UNIT/ML SUBCUT SCH (21:45)
[2022-07-26] MEDS: ALBUTEROL/IPRATROPIUM 3 ML NEB RESP TX SCH ×4 (01:05→19:06)
[2022-07-26] MEDS: METOCLOPRAMIDE 10 MG/2 ML VIAL IV SCH ×5 (01:22→23:15)
[2022-07-26] MEDS: SODIUM CHLORIDE 0.9% 1,000 ML IV SCH ×2 (02:12→13:35)
[2022-07-26 05:09] LABS: Basophils % 0.2 % (0.0-0.8); Eosinophils # 0.1 10*3/uL (0.0-0.87); Eosinophils % 2.3 % (0.00-10.9); Hematocrit 22.3 VOL% (42.0-52.0); Hemoglobin 7.3 GM/DL (14.0-18.0); Immature Granulocytes % 0.6 %; Immature Granulocytes Absolute 0.03 #; Lymphocytes % 18.2 % (21.2-54.2); Mean Corpuscular HGB Conc 32.7 GM/DL (32-36); Mean Corpuscular Volume 94.1 FL (87-102); Mean Platelet Volume 11.9 FL (9.6-12.0); Monocytes # 0.5 10*3/uL (0.11-0.8); Monocytes % 8.5 % (1.7-12.7); Neutrophils % 70.2 % (38.7-73.9); Platelet Count 140 T/CUMM (130-400); Red Blood Count 2.37 MC/CUMM (3.8-5.5); White Blood Count 5.3 T/CUMM (4-12)
[2022-07-26 05:30] LABS: Calcium 8.5 MG/DL (8.5-10.1); Osmolality,Calculated 313.7 MOS/KG (273-304); Potassium 4.8 MMOL/L (3.5-5.1)
[2022-07-26] MEDS: INSULIN REGULAR 100 UNIT/ML SUBCUT SCH ×4 (07:20→20:39)
[2022-07-26] MEDS ORDERED: SODIUM CHLORIDE 0.9% 1,000 ML IV PRN (11:09)
[2022-07-26] MEDS: ENOXAPARIN 30 MG/0.3 ML SYRINGE SUBCUT SCH (15:08)
[2022-07-26 17:06] LABS: Hematocrit 29.2 VOL% (42.0-52.0); Hemoglobin 9.3 GM/DL (14.0-18.0)
[2022-07-26] MEDS: INSULIN GLARGINE 100 UNIT/ML SUBCUT SCH (20:44)
[2022-07-27] MEDS: ALBUTEROL/IPRATROPIUM 3 ML NEB RESP TX SCH ×4 (00:18→19:06)
[2022-07-27] MEDS: SODIUM CHLORIDE 0.9% 1,000 ML IV SCH ×2 (01:21→09:52)
[2022-07-27 04:42] LABS: Basophils % 0.4 % (0.0-0.8); Eosinophils # 0.2 10*3/uL (0.0-0.87); Eosinophils % 4.1 % (0.00-10.9); Hemoglobin 8.6 GM/DL (14.0-18.0); Immature Granulocytes % 0.2 %; Immature Granulocytes Absolute 0.01 #; Lymphocytes # 1.1 10*3/uL (1.4-4.0); Lymphocytes % 23.3 % (21.2-54.2); Mean Corpuscular HGB Conc 31.9 GM/DL (32-36); Mean Corpuscular Volume 94.7 FL (87-102); Mean Platelet Volume 11.8 FL (9.6-12.0); Monocytes # 0.5 10*3/uL (0.11-0.8); Monocytes % 10.9 % (1.7-12.7); Neutrophils % 61.1 % (38.7-73.9); Platelet Count 149 T/CUMM (130-400); Red Blood Count 2.85 MC/CUMM (3.8-5.5); Red Cell Distribution Width 15.5 % (9.3-17.3); White Blood Count 4.9 T/CUMM (4-12)
[2022-07-27 05:00] LABS: Calcium 8.3 MG/DL (8.5-10.1); Osmolality,Calculated 312.4 MOS/KG (273-304); Potassium 4.5 MMOL/L (3.5-5.1)
[2022-07-27] MEDS: METOCLOPRAMIDE 10 MG/2 ML VIAL IV SCH ×4 (05:03→23:12)
[2022-07-27] MEDS ORDERED: DEXTROSE 10% 250 ML BAG IV PRN (06:11)
[2022-07-27] MEDS: INSULIN REGULAR 100 UNIT/ML SUBCUT SCH ×4 (09:05→21:24)
[2022-07-27] MEDS: ONDANSETRON 4 MG/2 ML VIAL IV PRN (09:53)
[2022-07-27] MEDS: ENOXAPARIN 30 MG/0.3 ML SYRINGE SUBCUT SCH (17:15)
[2022-07-27] MEDS: INSULIN GLARGINE 100 UNIT/ML SUBCUT SCH (21:02)
[2022-07-28] MEDS: ALBUTEROL/IPRATROPIUM 3 ML NEB RESP TX SCH ×4 (00:11→19:35)
[2022-07-28] MEDS ORDERED: FUROSEMIDE 40 MG/4 ML VIAL IV ONE ×2 (02:00→16:00)
[2022-07-28] MEDS: PROMETHAZINE 25 MG/1 ML VIAL IM PRN (03:33)
[2022-07-28 04:48] LABS: Basophils % 0.2 % (0.0-0.8); Eosinophils # 0.1 10*3/uL (0.0-0.87); Eosinophils % 1.3 % (0.00-10.9); Hematocrit 29.9 VOL% (42.0-52.0); Hemoglobin 9.5 GM/DL (14.0-18.0); Immature Granulocytes % 0.5 %; Immature Granulocytes Absolute 0.05 #; Lymphocytes # 0.9 10*3/uL (1.4-4.0); Lymphocytes % 9.7 % (21.2-54.2); Mean Corpuscular HGB Conc 31.8 GM/DL (32-36); Mean Corpuscular Volume 94.6 FL (87-102); Mean Platelet Volume 11.5 FL (9.6-12.0); Monocytes # 0.7 10*3/uL (0.11-0.8); Monocytes % 7.9 % (1.7-12.7); Neutrophils % 80.4 % (38.7-73.9); Platelet Count 168 T/CUMM (130-400); Red Blood Count 3.16 MC/CUMM (3.8-5.5); Red Cell Distribution Width 15.4 % (9.3-17.3); White Blood Count 9.3 T/CUMM (4-12)
[2022-07-28 05:06] LABS: Calcium 8.6 MG/DL (8.5-10.1); Osmolality,Calculated 306.7 MOS/KG (273-304); Potassium 4.6 MMOL/L (3.5-5.1)
[2022-07-28] MEDS: METOCLOPRAMIDE 10 MG/2 ML VIAL IV SCH ×3 (05:57→21:18)
[2022-07-28] MEDS: SODIUM CHLORIDE 0.9% 1,000 ML IV SCH ×2 (09:25→09:27)
[2022-07-28] MEDS: INSULIN REGULAR 100 UNIT/ML SUBCUT SCH ×4 (09:25→20:24)
[2022-07-28] MEDS ORDERED: DILTIAZEM 25 MG/5 ML VIAL IV ONE (09:30)
[2022-07-28 09:34] LABS: Arterial Base Excess iSTAT -3 MMOL/L (-2.5-2.5); Arterial O2 Saturation iSTAT 94 % (95-100); Arterial PCO2 iSTAT 37 MM HG (35-48); Arterial PO2 iSTAT 70 MM HG (80-95); Arterial Total CO2 iSTAT 23 MMO/L (23-27); Arterial pH iSTAT 7.382 (7.35-7.45)
[2022-07-28] MEDS ORDERED: DILTIAZEM CD 120 MG CAPSULE PO SCH (10:00)
[2022-07-28] MEDS: carvediloL 25 MG TABLET PO SCH ×2 (10:52→18:23)
[2022-07-28] MEDS: DILTIAZEM 60 MG TABLET PO SCH ×2 (10:53→21:15)
[2022-07-28] MEDS: ONDANSETRON 4 MG/2 ML VIAL IV PRN ×3 (12:00→23:46)
[2022-07-28] MEDS: ALUMINUM/MAGNES/SIMETH MAX STR 30 ML UDCUP PO PRN (15:18)
[2022-07-28] MEDS: ENOXAPARIN 100 MG/ML SYRINGE SUBCUT SCH (15:50)
[2022-07-28] MEDS: PANTOPRAZOLE 40 MG TABLET PO SCH (15:50)
[2022-07-28 18:05] LABS: Arterial Base Excess iSTAT -4 MMOL/L (-2.5-2.5); Arterial Bicarbonate iSTAT 21.6 MMOL/L (20-26); Arterial O2 Saturation iSTAT 80 % (95-100); Arterial PCO2 iSTAT 42 MM HG (35-48); Arterial PO2 iSTAT 48 MM HG (80-95); Arterial Total CO2 iSTAT 23 MMO/L (23-27); Arterial pH iSTAT 7.324 (7.35-7.45)
[2022-07-28 19:14] LABS: Urine Appearance Clear (Clear); Urine Color Yellow (Yellow); Urine Specific Gravity 1.015 (1.001-1.035)
[2022-07-28 19:15] LABS: Bilirubin,Urine Negative (Negative); Blood, Urine Trace mg/dL (Negative); Glucose,Urine (UA) Negative (Negative); Ketones,Urine Negative (Negative); Nitrite,Urine Negative (Negative); Protein,Urine Negative (Negative); Urine Urobilinogen 0.2 eU/dL (<2.0)
[2022-07-28 19:20] LABS: Bacteria,Urine Occasional /HPF (Few); Hyaline Casts,Urine 1 /LPF (0-3); Mucus,Urine Occasional /LPF (Occasional); RBC,Urine <1 /HPF (0-4); Squamous Epithelial Cell,Urine Occasional /HPF (0-10)
[2022-07-28 19:37] LABS: Arterial Base Excess iSTAT -4 MMOL/L (-2.5-2.5); Arterial Bicarbonate iSTAT 21.9 MMOL/L (20-26); Arterial O2 Saturation iSTAT 100 % (95-100); Arterial PCO2 iSTAT 40 MM HG (35-48); Arterial PO2 iSTAT 336 MM HG (80-95); Arterial Total CO2 iSTAT 23 MMO/L (23-27); Arterial pH iSTAT 7.342 (7.35-7.45)
[2022-07-28] MEDS: INSULIN GLARGINE 100 UNIT/ML SUBCUT SCH (21:16)
[2022-07-29] MEDS: ALBUTEROL/IPRATROPIUM 3 ML NEB RESP TX SCH ×4 (00:45→19:50)
[2022-07-29] MEDS: METOCLOPRAMIDE 10 MG/2 ML VIAL IV SCH ×4 (03:37→20:51)
[2022-07-29 03:59] LABS: Basophils % 0.1 % (0.0-0.8); Hematocrit 26.8 VOL% (42.0-52.0); Hemoglobin 8.5 GM/DL (14.0-18.0); Immature Granulocytes % 0.4 %; Immature Granulocytes Absolute 0.04 #; Lymphocytes # 0.7 10*3/uL (1.4-4.0); Lymphocytes % 6.9 % (21.2-54.2); Mean Corpuscular HGB Conc 31.7 GM/DL (32-36); Mean Corpuscular Volume 95.4 FL (87-102); Mean Platelet Volume 10.8 FL (9.6-12.0); Monocytes # 0.6 10*3/uL (0.11-0.8); Monocytes % 5.5 % (1.7-12.7); Neutrophils % 87.1 % (38.7-73.9); Platelet Count 153 T/CUMM (130-400); Red Blood Count 2.81 MC/CUMM (3.8-5.5); Red Cell Distribution Width 15.7 % (9.3-17.3); White Blood Count 10.1 T/CUMM (4-12)
[2022-07-29 04:23] LABS: Calcium 9.2 MG/DL (8.5-10.1); Potassium 4.5 MMOL/L (3.5-5.1)
[2022-07-29 04:24] LABS: Phosphorous 4.4 MG/DL (2.5-4.9); Uric Acid 11.8 MG/DL (3.5-7.2)
[2022-07-29] MEDS: INSULIN REGULAR 100 UNIT/ML SUBCUT SCH ×4 (08:49→21:00)
[2022-07-29] MEDS ORDERED: FUROSEMIDE 40 MG/4 ML VIAL IV SCH (09:00)
[2022-07-29] MEDS: DILTIAZEM 60 MG TABLET PO SCH ×2 (09:41→20:52)
[2022-07-29] MEDS: carvediloL 25 MG TABLET PO SCH (09:41)
[2022-07-29] MEDS: PANTOPRAZOLE 40 MG TABLET PO SCH (09:42)
[2022-07-29] MEDS ORDERED: DIGOXIN 0.5 MG/2 ML AMP IV ONE ×2 (10:26→11:30)
[2022-07-29] MEDS: cefTRIAXone 1,000 MG in SODIUM CHLORIDE 0.9% 100 ML IV SCH (12:05)
[2022-07-29] MEDS: ENOXAPARIN 100 MG/ML SYRINGE SUBCUT SCH (16:00)
[2022-07-29] MEDS: INSULIN GLARGINE 100 UNIT/ML SUBCUT SCH (20:51)
[2022-07-30] MEDS: ALBUTEROL/IPRATROPIUM 3 ML NEB RESP TX SCH ×4 (00:49→19:34)
[2022-07-30 03:38] LABS: Basophils % 0.3 % (0.0-0.8); Eosinophils % 0.5 % (0.00-10.9); Immature Granulocytes % 0.5 %; Immature Granulocytes Absolute 0.04 #; Lymphocytes # 0.8 10*3/uL (1.4-4.0); Lymphocytes % 10.2 % (21.2-54.2); Mean Corpuscular HGB Conc 30.8 GM/DL (32-36); Mean Corpuscular Volume 96.7 FL (87-102); Mean Platelet Volume 11.3 FL (9.6-12.0); Monocytes # 0.5 10*3/uL (0.11-0.8); Monocytes % 6.1 % (1.7-12.7); Neutrophils % 82.4 % (38.7-73.9); Platelet Count 145 T/CUMM (130-400); Red Blood Count 2.69 MC/CUMM (3.8-5.5); Red Cell Distribution Width 15.6 % (9.3-17.3); White Blood Count 7.4 T/CUMM (4-12)
[2022-07-30 03:52] LABS: Calcium 8.9 MG/DL (8.5-10.1); Osmolality,Calculated 323.6 MOS/KG (273-304); Potassium 4.4 MMOL/L (3.5-5.1)
[2022-07-30] MEDS: METOCLOPRAMIDE 10 MG/2 ML VIAL IV SCH ×4 (04:24→21:05)
[2022-07-30] MEDS: METOPROLOL SUCCINATE XL 25 MG TABLET PO SCH (09:00)
[2022-07-30] MEDS: PANTOPRAZOLE 40 MG TABLET PO SCH (09:00)
[2022-07-30] MEDS: FUROSEMIDE 40 MG TABLET PO SCH (09:00)
[2022-07-30] MEDS: INSULIN REGULAR 100 UNIT/ML SUBCUT SCH ×4 (09:00→20:34)
[2022-07-30] MEDS: cefTRIAXone 1,000 MG in SODIUM CHLORIDE 0.9% 100 ML IV SCH (13:00)
[2022-07-30] MEDS: ENOXAPARIN 100 MG/ML SYRINGE SUBCUT SCH (16:45)
[2022-07-30] MEDS: INSULIN GLARGINE 100 UNIT/ML SUBCUT SCH (21:05)
[2022-07-30] MEDS: ALUMINUM/MAGNES/SIMETH MAX STR 30 ML UDCUP PO PRN (23:57)
[2022-07-31] MEDS: ONDANSETRON 4 MG/2 ML VIAL IV PRN (00:08)
[2022-07-31] MEDS: ALBUTEROL/IPRATROPIUM 3 ML NEB RESP TX SCH ×4 (00:36→19:16)
[2022-07-31] MEDS: METOCLOPRAMIDE 10 MG/2 ML VIAL IV SCH ×4 (05:43→21:20)
[2022-07-31 06:03] LABS: Calcium 9.2 MG/DL (8.5-10.1); Osmolality,Calculated 322.6 MOS/KG (273-304); Potassium 4.2 MMOL/L (3.5-5.1)
[2022-07-31] MEDS: INSULIN REGULAR 100 UNIT/ML SUBCUT SCH ×3 (08:13→17:49)
[2022-07-31] MEDS: PANTOPRAZOLE 40 MG TABLET PO SCH (09:13)
[2022-07-31] MEDS: METOPROLOL SUCCINATE XL 25 MG TABLET PO SCH (09:13)
[2022-07-31] MEDS: FUROSEMIDE 40 MG TABLET PO SCH (09:13)
[2022-07-31] MEDS: cefTRIAXone 1,000 MG in SODIUM CHLORIDE 0.9% 100 ML IV SCH (10:18)
[2022-07-31] MEDS: ENOXAPARIN 100 MG/ML SYRINGE SUBCUT SCH (15:55)
[2022-07-31] MEDS: INSULIN GLARGINE 100 UNIT/ML SUBCUT SCH (21:20)
[2022-08-01] MEDS: ALBUTEROL/IPRATROPIUM 3 ML NEB RESP TX SCH ×4 (00:13→19:25)
[2022-08-01] MEDS: METOCLOPRAMIDE 10 MG/2 ML VIAL IV SCH ×4 (03:30→21:25)
[2022-08-01 05:08] LABS: Calcium 9.1 MG/DL (8.5-10.1); Osmolality,Calculated 322.3 MOS/KG (273-304); Potassium 4.1 MMOL/L (3.5-5.1)
[2022-08-01] MEDS: INSULIN REGULAR 100 UNIT/ML SUBCUT SCH ×5 (05:33→21:28)
[2022-08-01] MEDS ORDERED: DEXTROSE 5% 1,000 ML IV SCH (07:30)
[2022-08-01] MEDS: PANTOPRAZOLE 40 MG TABLET PO SCH (09:28)
[2022-08-01] MEDS: FUROSEMIDE 40 MG TABLET PO SCH (09:28)
[2022-08-01] MEDS: METOPROLOL SUCCINATE XL 25 MG TABLET PO SCH (09:29)
[2022-08-01] MEDS: cefTRIAXone 1,000 MG in SODIUM CHLORIDE 0.9% 100 ML IV SCH (09:32)
[2022-08-01] MEDS: ENOXAPARIN 100 MG/ML SYRINGE SUBCUT SCH (15:40)
[2022-08-01] MEDS: INSULIN GLARGINE 100 UNIT/ML SUBCUT SCH (21:26)
[2022-08-02] MEDS: ALBUTEROL/IPRATROPIUM 3 ML NEB RESP TX SCH ×4 (00:12→19:19)
[2022-08-02] MEDS: METOCLOPRAMIDE 10 MG/2 ML VIAL IV SCH ×4 (03:54→21:45)
[2022-08-02 05:07] LABS: Basophils % 0.1 % (0.0-0.8); Eosinophils # 0.3 10*3/uL (0.0-0.87); Eosinophils % 3.4 % (0.00-10.9); Hematocrit 27.4 VOL% (42.0-52.0); Hemoglobin 8.4 GM/DL (14.0-18.0); Immature Granulocytes % 0.4 %; Immature Granulocytes Absolute 0.04 #; Lymphocytes # 0.9 10*3/uL (1.4-4.0); Lymphocytes % 9.6 % (21.2-54.2); Mean Corpuscular HGB Conc 30.7 GM/DL (32-36); Mean Corpuscular Volume 98.6 FL (87-102); Mean Platelet Volume 11.8 FL (9.6-12.0); Monocytes # 0.9 10*3/uL (0.11-0.8); Monocytes % 9.5 % (1.7-12.7); Platelet Count 179 T/CUMM (130-400); Red Blood Count 2.78 MC/CUMM (3.8-5.5); Red Cell Distribution Width 15.3 % (9.3-17.3); White Blood Count 9.2 T/CUMM (4-12)
[2022-08-02 05:20] LABS: Calcium 8.8 MG/DL (8.5-10.1); Potassium 4.1 MMOL/L (3.5-5.1)
[2022-08-02] MEDS: INSULIN REGULAR 100 UNIT/ML SUBCUT SCH ×4 (07:12→23:58)
[2022-08-02] MEDS: PANTOPRAZOLE 40 MG TABLET PO SCH (09:05)
[2022-08-02] MEDS: FUROSEMIDE 40 MG TABLET PO SCH (09:06)
[2022-08-02] MEDS: METOPROLOL SUCCINATE XL 25 MG TABLET PO SCH (09:06)
[2022-08-02] MEDS: cefTRIAXone 1,000 MG in SODIUM CHLORIDE 0.9% 100 ML IV SCH (11:34)
[2022-08-02] MEDS ORDERED: cloNIDine 0.1 MG/24 HR PATCH TRANSDERM SCH (12:00)
[2022-08-02] MEDS: SODIUM CHLORIDE 0.45% 1,000 ML IV SCH (13:50)
[2022-08-02] MEDS: ENOXAPARIN 100 MG/ML SYRINGE SUBCUT SCH (16:31)
[2022-08-02] MEDS: INSULIN GLARGINE 100 UNIT/ML SUBCUT SCH (21:45)
[2022-08-02] MEDS: ALUMINUM/MAGNES/SIMETH MAX STR 30 ML UDCUP PO PRN (23:56)
[2022-08-03] MEDS: ALBUTEROL/IPRATROPIUM 3 ML NEB RESP TX SCH ×5 (01:43→23:07)
[2022-08-03] MEDS: METOCLOPRAMIDE 10 MG/2 ML VIAL IV SCH ×4 (04:40→20:41)
[2022-08-03] MEDS: SODIUM CHLORIDE 0.45% 1,000 ML IV SCH ×2 (05:00→15:47)
[2022-08-03 05:03] LABS: Basophils % 0.2 % (0.0-0.8); Eosinophils # 0.3 10*3/uL (0.0-0.87); Eosinophils % 3.2 % (0.00-10.9); Hematocrit 25.7 VOL% (42.0-52.0); Hemoglobin 7.9 GM/DL (14.0-18.0); Immature Granulocytes % 0.6 %; Immature Granulocytes Absolute 0.06 #; Lymphocytes % 9.3 % (21.2-54.2); Mean Corpuscular HGB Conc 30.7 GM/DL (32-36); Mean Corpuscular Volume 98.8 FL (87-102); Mean Platelet Volume 11.4 FL (9.6-12.0); Monocytes # 0.9 10*3/uL (0.11-0.8); Monocytes % 8.5 % (1.7-12.7); Neutrophils % 78.2 % (38.7-73.9); Platelet Count 188 T/CUMM (130-400); White Blood Count 10.2 T/CUMM (4-12)
[2022-08-03 05:23] LABS: Calcium 8.5 MG/DL (8.5-10.1); Potassium 3.8 MMOL/L (3.5-5.1)
[2022-08-03] MEDS: INSULIN REGULAR 100 UNIT/ML SUBCUT SCH ×4 (08:28→21:34)
[2022-08-03] MEDS: METOPROLOL SUCCINATE XL 25 MG TABLET PO SCH (08:45)
[2022-08-03] MEDS: PANTOPRAZOLE 40 MG TABLET PO SCH (08:45)
[2022-08-03] MEDS: cefTRIAXone 1,000 MG in SODIUM CHLORIDE 0.9% 100 ML IV SCH (09:54)
[2022-08-03] MEDS: ENOXAPARIN 100 MG/ML SYRINGE SUBCUT SCH (15:38)
[2022-08-03] MEDS: INSULIN GLARGINE 100 UNIT/ML SUBCUT SCH (20:42)
[2022-08-03] MEDS ORDERED: busPIRone 5 MG TABLET PO SCH (21:00)
[2022-08-04] MEDS: METOCLOPRAMIDE 10 MG/2 ML VIAL IV SCH ×4 (04:10→21:33)
[2022-08-04 04:42] LABS: Basophils % 0.2 % (0.0-0.8); Eosinophils # 0.4 10*3/uL (0.0-0.87); Eosinophils % 4.8 % (0.00-10.9); Hematocrit 25.1 VOL% (42.0-52.0); Hemoglobin 7.5 GM/DL (14.0-18.0); Immature Granulocytes % 0.4 %; Immature Granulocytes Absolute 0.03 #; Lymphocytes % 11.9 % (21.2-54.2); Mean Corpuscular HGB Conc 29.9 GM/DL (32-36); Mean Corpuscular Volume 98.8 FL (87-102); Mean Platelet Volume 11.3 FL (9.6-12.0); Monocytes # 0.8 10*3/uL (0.11-0.8); Monocytes % 9.4 % (1.7-12.7); Neutrophils % 73.3 % (38.7-73.9); Platelet Count 199 T/CUMM (130-400); Red Blood Count 2.54 MC/CUMM (3.8-5.5); Red Cell Distribution Width 15.3 % (9.3-17.3); White Blood Count 8.1 T/CUMM (4-12)
[2022-08-04 05:04] LABS: Calcium 8.6 MG/DL (8.5-10.1); Osmolality,Calculated 312.3 MOS/KG (273-304); Potassium 3.7 MMOL/L (3.5-5.1)
[2022-08-04] MEDS: SODIUM CHLORIDE 0.45% 1,000 ML IV SCH (05:34)
[2022-08-04] MEDS: ALBUTEROL/IPRATROPIUM 3 ML NEB RESP TX SCH ×3 (07:40→19:18)
[2022-08-04] MEDS: PANTOPRAZOLE 40 MG TABLET PO SCH (08:51)
[2022-08-04] MEDS: METOPROLOL SUCCINATE XL 25 MG TABLET PO SCH (08:51)
[2022-08-04] MEDS: INSULIN REGULAR 100 UNIT/ML SUBCUT SCH ×4 (08:51→21:30)
[2022-08-04] MEDS: cefTRIAXone 1,000 MG in SODIUM CHLORIDE 0.9% 100 ML IV SCH (09:38)
[2022-08-04] MEDS ORDERED: TUBERCULIN SKIN TEST 0.1 ML SYRINGE INTRADERM ONE (12:27)
[2022-08-04] MEDS ORDERED: SODIUM CHLORIDE 0.9% 1,000 ML IV PRN (13:08)
[2022-08-04] MEDS: GABAPENTIN 300 MG CAPSULE PO SCH (15:49)
[2022-08-04] MEDS: ENOXAPARIN 100 MG/ML SYRINGE SUBCUT SCH (15:50)
[2022-08-04] MEDS ORDERED: FUROSEMIDE 20 MG/2 ML VIAL IV ONE (18:09)
[2022-08-04] MEDS: traZODone 50 MG TABLET PO SCH (21:16)
[2022-08-04] MEDS: INSULIN GLARGINE 100 UNIT/ML SUBCUT SCH (21:31)
[2022-08-05] MEDS: METOCLOPRAMIDE 10 MG/2 ML VIAL IV SCH ×4 (04:41→21:10)
[2022-08-05] MEDS: ALBUTEROL/IPRATROPIUM 3 ML NEB RESP TX SCH ×4 (05:27→20:07)
[2022-08-05 05:36] LABS: Basophils % 0.5 % (0.0-0.8); Eosinophils # 0.4 10*3/uL (0.0-0.87); Eosinophils % 5.7 % (0.00-10.9); Hematocrit 30.4 VOL% (42.0-52.0); Immature Granulocytes % 0.6 %; Immature Granulocytes Absolute 0.04 #; Lymphocytes # 0.9 10*3/uL (1.4-4.0); Lymphocytes % 13.7 % (21.2-54.2); Mean Corpuscular HGB Conc 31.3 GM/DL (32-36); Mean Corpuscular Volume 95.9 FL (87-102); Mean Platelet Volume 11.7 FL (9.6-12.0); Monocytes # 0.7 10*3/uL (0.11-0.8); Monocytes % 10.2 % (1.7-12.7); Neutrophils % 69.3 % (38.7-73.9); Platelet Count 182 T/CUMM (130-400); Red Cell Distribution Width 16.2 % (9.3-17.3); White Blood Count 6.5 T/CUMM (4-12)
[2022-08-05 05:39] LABS: Hemoglobin 9.5 GM/DL (14.0-18.0); Red Blood Count 3.17 MC/CUMM (3.8-5.5)
[2022-08-05 05:56] LABS: Albumin 2.1 G/DL (3.4-5.0); Bilirubin,Total 0.4 MG/DL (0.20-1.00); Calcium 8.4 MG/DL (8.5-10.1); Osmolality,Calculated 308.4 MOS/KG (273-304); Potassium 3.9 MMOL/L (3.5-5.1); Total Protein 6.2 G/DL (6.4-8.2)
[2022-08-05] MEDS ORDERED: FUROSEMIDE 20 MG/2 ML VIAL IV ONE (06:37)
[2022-08-05] MEDS: METOPROLOL SUCCINATE XL 25 MG TABLET PO SCH (09:11)
[2022-08-05] MEDS: PANTOPRAZOLE 40 MG TABLET PO SCH (09:11)
[2022-08-05] MEDS: INSULIN REGULAR 100 UNIT/ML SUBCUT SCH ×4 (10:09→21:06)
[2022-08-05] MEDS: SODIUM CHLORIDE 0.45% 1,000 ML IV SCH ×3 (10:10→21:04)
[2022-08-05] MEDS: cefTRIAXone 1,000 MG in SODIUM CHLORIDE 0.9% 100 ML IV SCH (10:52)
[2022-08-05] MEDS: ENOXAPARIN 100 MG/ML SYRINGE SUBCUT SCH (14:58)
[2022-08-05] MEDS ORDERED: ENOXAPARIN 150 MG/ML SYRINGE SUBCUT SCH (16:00)
[2022-08-05] MEDS: GABAPENTIN 300 MG CAPSULE PO SCH (16:32)
[2022-08-05] MEDS: SIMVASTATIN 10 MG TABLET PO SCH (16:32)
[2022-08-05] MEDS: traZODone 50 MG TABLET PO SCH (21:05)
[2022-08-05] MEDS: INSULIN GLARGINE 100 UNIT/ML SUBCUT SCH (21:06)
[2022-08-05] MEDS ORDERED: ALBUTEROL/IPRATROPIUM 3 ML NEB RESP TX PRN (22:21)
[2022-08-06] MEDS: ALBUTEROL/IPRATROPIUM 3 ML NEB RESP TX SCH ×4 (00:01→19:40)
[2022-08-06] MEDS: METOCLOPRAMIDE 10 MG/2 ML VIAL IV SCH ×4 (03:01→20:51)
[2022-08-06] MEDS ORDERED: FUROSEMIDE 40 MG/4 ML VIAL IM ONE (04:35)
[2022-08-06] MEDS ORDERED: FUROSEMIDE 40 MG/4 ML VIAL IV ONE (05:00)
[2022-08-06 05:01] LABS: Basophils % 0.4 % (0.0-0.8); Eosinophils # 0.3 10*3/uL (0.0-0.87); Eosinophils % 4.1 % (0.00-10.9); Hematocrit 31.3 VOL% (42.0-52.0); Hemoglobin 9.7 GM/DL (14.0-18.0); Immature Granulocytes % 0.7 %; Immature Granulocytes Absolute 0.05 #; Lymphocytes # 0.8 10*3/uL (1.4-4.0); Lymphocytes % 10.4 % (21.2-54.2); Mean Platelet Volume 11.2 FL (9.6-12.0); Monocytes # 0.7 10*3/uL (0.11-0.8); Neutrophils % 74.4 % (38.7-73.9); Platelet Count 198 T/CUMM (130-400); Red Blood Count 3.26 MC/CUMM (3.8-5.5); Red Cell Distribution Width 15.9 % (9.3-17.3); White Blood Count 7.4 T/CUMM (4-12)
[2022-08-06 05:13] LABS: Calcium 8.4 MG/DL (8.5-10.1); Osmolality,Calculated 297.3 MOS/KG (273-304)
[2022-08-06] MEDS: ONDANSETRON 4 MG/2 ML VIAL IV PRN (06:57)
[2022-08-06] MEDS: INSULIN REGULAR 100 UNIT/ML SUBCUT SCH ×4 (09:56→20:50)
[2022-08-06] MEDS: ASPIRIN EC 81 MG TABLET PO SCH (10:06)
[2022-08-06] MEDS: METOPROLOL SUCCINATE XL 25 MG TABLET PO SCH (10:06)
[2022-08-06] MEDS: PANTOPRAZOLE 40 MG TABLET PO SCH (10:06)
[2022-08-06] MEDS: cefTRIAXone 1,000 MG in SODIUM CHLORIDE 0.9% 100 ML IV SCH (10:07)
[2022-08-06] MEDS: SODIUM CHLORIDE 0.45% 1,000 ML IV SCH ×2 (10:53→22:33)
[2022-08-06] MEDS ORDERED: ENOXAPARIN 150 MG/ML SYRINGE SUBCUT SCH (16:00)
[2022-08-06] MEDS: GABAPENTIN 300 MG CAPSULE PO SCH (16:09)
[2022-08-06] MEDS: methylPREDNISolone SOD SUC 40 MG/1 ML VIAL IV SCH ×2 (16:09→22:34)
[2022-08-06] MEDS: SIMVASTATIN 10 MG TABLET PO SCH (16:09)
[2022-08-06] MEDS: traZODone 50 MG TABLET PO SCH (20:50)
[2022-08-06] MEDS: INSULIN GLARGINE 100 UNIT/ML SUBCUT SCH (20:51)
[2022-08-07] MEDS: ALBUTEROL/IPRATROPIUM 3 ML NEB RESP TX SCH ×2 (00:45→07:50)
[2022-08-07] MEDS: METOCLOPRAMIDE 10 MG/2 ML VIAL IV SCH ×2 (02:43→08:48)
[2022-08-07 05:25] LABS: Basophils % 0.2 % (0.0-0.8); Hematocrit 28.3 VOL% (42.0-52.0); Hemoglobin 8.9 GM/DL (14.0-18.0); Immature Granulocytes % 0.7 %; Immature Granulocytes Absolute 0.04 #; Lymphocytes # 0.5 10*3/uL (1.4-4.0); Lymphocytes % 8.6 % (21.2-54.2); Mean Corpuscular HGB Conc 31.4 GM/DL (32-36); Mean Corpuscular Volume 95.9 FL (87-102); Mean Platelet Volume 11.2 FL (9.6-12.0); Monocytes # 0.1 10*3/uL (0.11-0.8); Monocytes % 2.5 % (1.7-12.7); Platelet Count 167 T/CUMM (130-400); Red Blood Count 2.95 MC/CUMM (3.8-5.5); Red Cell Distribution Width 15.2 % (9.3-17.3); White Blood Count 5.6 T/CUMM (4-12)
[2022-08-07 05:45] LABS: Calcium 8.3 MG/DL (8.5-10.1); Osmolality,Calculated 295.4 MOS/KG (273-304); Potassium 4.3 MMOL/L (3.5-5.1)
[2022-08-07] MEDS: PANTOPRAZOLE 40 MG TABLET PO SCH (08:48)
[2022-08-07] MEDS: ASPIRIN EC 81 MG TABLET PO SCH (08:48)
[2022-08-07] MEDS: METOPROLOL SUCCINATE XL 25 MG TABLET PO SCH (08:48)
[2022-08-07] MEDS: INSULIN REGULAR 100 UNIT/ML SUBCUT SCH ×2 (08:52→12:55)
[2022-08-07] MEDS: cefTRIAXone 1,000 MG in SODIUM CHLORIDE 0.9% 100 ML IV SCH (09:30)
[2022-08-07] MEDS: methylPREDNISolone SOD SUC 40 MG/1 ML VIAL IV SCH (11:20)
[2022-08-07 11:42] VITALS: BP 132/58
[2022-08-07] MEDS: SODIUM CHLORIDE 0.45% 1,000 ML IV SCH (13:39)
== END 2022-08-07 13:43 | DRG 682 ==
LOC: SUATTDRO 13:50 → N.3E 13:50 → N.ICU 07-28 04:15 → N.3E 08-01 16:04
PROVIDERS: ADMIT Internal Medicine; ATTEND Internal Medicine